=== PATIENT | male | born 1935 | race American Indian/Alaskan Native ===

== ENCOUNTER 2016-09-06 06:10 | Emergency (ER) | payer MEDICARE ==
[2016-09-06 06:48] VITALS: BP 115/71
[2016-09-06] MEDS ORDERED: BOOSTRIX IM ONE (08:57)
--- NOTE | 2016-09-06 08:58 | Emergency Department Report ---
ED General Adult HPI - General Chief complaint: Extremity Injury, Lower Stated complaint: BLEEDING TOE Time Seen by Provider: 09/06/16 08:22 Source: patient, EMS Mode of arrival: Stretcher Limitations: Physical Limitation - History of Present Illness Initial comments: Apparently [facility] was concerned as there was bleeding from the dorsum of the left toe. It is uncertain as to whether the patient had a specific injury. This is presumed as he does have a small abrasion. He is on Clopidogrel which probably accounts for the degree of bleeding which was moderate. Severity scale (0 -10): 0 - Related Data Home Medications Medication Instructions Recorded Confirmed Last Taken Acetaminophen [Acetaminophen TAB] 650 mg PO Q6HR PRN 11/10/14 08/31/15 Unknown Clopidogrel [Plavix] 75 mg PO QDAY 11/10/14 09/03/15 09/02/15 09:00 Ferrous Sulfate [Ferrous Sulfate 220 mg PO DAILY 11/10/14 09/03/15 09/02/15 09: 00 Oral Liq 220 Mg/5 Ml] Furosemide [Lasix TAB] 20 mg PO QDAY 11/10/14 09/03/15 09/02/15 09:00 LORazepam [Ativan] 1 mg PO TID PRN 11/10/14 08/31/15 Unknown Lansoprazole [Prevacid] 30 mg PO QDAY 11/10/14 09/03/15 09/02/15 09:00 Mirtazapine [Remeron] 7.5 mg PO QHS 11/10/14 07/07/15 Unknown Multivitamin Tab W-MINERAL 1 each PO QD 11/10/14 09/03/15 09/02/15 09:00 [Multiple Vitamin/Mineral (Theragran M)] Sennosides [Senna Lax] 2 tab PO BID 11/10/14 09/03/15 09/02/15 17:00 Tamsulosin [Flomax] 0.4 mg PO QDAY 11/10/14 09/03/15 09/02/15 09:00 levETIRAcetam [Keppra TAB] 500 mg PO BID 11/10/14 09/03/15 09/02/15 17:00 Lactobacillus Acidophilus/Pect 1 each PO DAILY 07/07/15 09/03/15 09/02/15 09:00 [Acidophilus-Pectin Capsule] Nitrofurantoin Macrocrysta(Nf) 50 mg PO DAILY 08/31/15 08/31/15 Unknown [Macrodantin CAP] Allergies Allergy/AdvReac Type Severity Reaction Status Date / Time No Known Allergies Allergy Verified 07/07/15 16:02 ED Review of Systems ROS: Stated complaint: BLEEDING TOE Other details as noted in HPI Comment: Unobtainable due to pts medical conditions (patient has dementia and is largely unable to focus on specific issues. He has no complaints however.) ED Past Medical Hx - Past Medical History Previous Medical History?: Yes Hx Hypertension: Yes Hx Heart Attack/AMI: No (?, daughter is poor historian.) Hx Congestive Heart Failure: Yes Hx Diabetes: Yes Hx GERD: Yes Hx Renal Disease: Yes (h/o multiple electrolyte disturbances) Hx Seizures: Yes Hx Asthma: No Hx Dementia: Yes Hx HIV: No Additional medical history: Contractures, Osteoporosis, PVD, Ventral Hernia - Surgical History Past Surgical History?: Yes Hx Open Heart Surgery: Yes (CABG) Hx Pacemaker: No Hx Internal Defibrillator: No - Social History Smoking Status: Never Smoker Substance Use Type: None - Medications Home Medications: Home Medications Medication Instructions Recorded Confirmed Last Taken Type Acetaminophen [Acetaminophen TAB] 650 mg PO Q6HR PRN 11/10/14 08/31/15 Unknown History Clopidogrel [Plavix] 75 mg PO QDAY 11/10/14 09/03/15 09/02/15 09:00 History Ferrous Sulfate [Ferrous Sulfate 220 mg PO DAILY 11/10/14 09/03/15 09/02/15 09: 00 History Oral Liq 220 Mg/5 Ml] Furosemide [Lasix TAB] 20 mg PO QDAY 11/10/14 09/03/15 09/02/15 09:00 History LORazepam [Ativan] 1 mg PO TID PRN 11/10/14 08/31/15 Unknown History Lansoprazole [Prevacid] 30 mg PO QDAY 11/10/14 09/03/15 09/02/15 09:00 History Mirtazapine [Remeron] 7.5 mg PO QHS 11/10/14 07/07/15 Unknown History Multivitamin Tab W-MINERAL 1 each PO QD 11/10/14 09/03/15 09/02/15 09:00 History [Multiple Vitamin/Mineral (Theragran M)] Sennosides [Senna Lax] 2 tab PO BID 11/10/14 09/03/15 09/02/15 17:00 History Tamsulosin [Flomax] 0.4 mg PO QDAY 11/10/14 09/03/15 09/02/15 09:00 History levETIRAcetam [Keppra TAB] 500 mg PO BID 11/10/14 09/03/15 09/02/15 17:00 History Lactobacillus Acidophilus/Pect 1 each PO DAILY 07/07/15 09/03/15 09/02/15 09:00 History [Acidophilus-Pectin Capsule] Nitrofurantoin Macrocrysta(Nf) 50 mg PO DAILY 08/31/15 08/31/15 Unknown History [Macrodantin CAP] ED Physical Exam - General Limitations: Physical Limitation General appearance: alert - Head Head exam: Present: atraumatic - Eye Eye exam: Present: normal appearance - ENT ENT exam: Present: normal exam - Neck Neck exam: Present: normal inspection - Respiratory Respiratory exam: Present: normal lung sounds bilaterally - Cardiovascular Cardiovascular Exam: Present: regular rate, normal rhythm. Absent: systolic murmur, diastolic murmur, rubs, gallop - GI/Abdominal GI/Abdominal exam: Present: soft, normal bowel sounds. Absent: distended, tenderness, guarding, rebound - Extremities Exam Extremities exam: Present: other (there is a tiny abrasion/avulsion of the dorsum of the distal phalanx of the second toe of the left foot there is no active bleeding.) - Skin Skin exam: Present: warm, dry. Absent: intact ED Course Vital Signs 09/06/16 09/06/16 09/06/16 06:30 06:35 06:46 Temperature 97 F L 97 F L Pulse Rate 82 80 89 Respiratory 18 16 18 Rate Blood Pressure 124/65 Blood Pressure 124/65 115/71 [Left] O2 Sat by Pulse 100 96 100 Oximetry - Reevaluation(s) Reevaluation #1: Tetanus vaccine and dressing. No other emergency medical condition is suspected. 09/06/16 08:56 ED Medical Decision Making - Radiology Data interpreted by me: Foot x-ray showed no acute fracture Critical care attestation.: If time is entered above; I have spent that time in minutes in the direct care of this critically ill patient, excluding procedure time. ED Disposition Clinical Impression: Abrasion of second toe of left foot Qualifiers: Encounter type: initial encounter Qualified Code(s): S90.415A - Abrasion, left lesser toe(s), initial encounter Disposition: TO HOME OR SELFCARE Is pt being admited?: No Does the pt Need Aspirin: No Condition: Stable Instructions: Abrasion (ED) Referrals: PRIMARY CARE, [Primary Care Provider] - 3-5 Days Time of Disposition: 08:57
--- NOTE | 2016-09-06 09:03 | XRay Report ---
Left foot 2 views: History: Second toe laceration. Findings: The oblique radiograph is not available for optimal evaluation. In the 2 views of the foot there is generalized osteopenia noted. No definite fracture or periosteal reaction or lytic lesion is seen. A faint soft tissue calcification is identified in the plantar aspect of the foot. Small spur is noted in the posterior superior calcaneal. Impression: Findings as detailed above. No acute fracture on 2 views available for review.
== END 2016-09-06 09:38 | disposition home or self-care (01) ==
LOC: ED 06:10
DX: S90.415A Abrasion, left lesser toe(s), initial encounter (principal); I11.0 Hypertensive heart disease with heart failure; I50.9 Heart failure, unspecified; E11.9 Type 2 diabetes mellitus without complications; K21.9 Gastro-esophageal reflux disease without esophagitis; F03.90 Unspecified dementia, unspecified severity, without behavioral disturbance, psychotic disturbance, mood disturbance, and anxiety; Z95.1 Presence of aortocoronary bypass graft; Z79.02 Long term (current) use of antithrombotics/antiplatelets; X58.XXXA Exposure to other specified factors, initial encounter; Y93.89 Activity, other specified; Y92.89 Other specified places as the place of occurrence of the external cause; Y99.8 Other external cause status
CPT/HCPCS: 82962; 90471; 90715; 99284

== ENCOUNTER 2017-04-06 10:57 | Emergency (ER) | payer MEDICAID, MEDICARE ==
--- NOTE | 2017-04-06 18:02 | Emergency Department Report ---
ED Male HPI - General Chief complaint: Tube Replacement Stated complaint: DISLODGED CATHETER Time Seen by Provider: 04/06/17 12:45 Source: EMS Mode of arrival: Stretcher Limitations: No Limitations - History of Present Illness Initial comments: Patient is a 81-year-old [place] male who is in a detention who is presenting with issue with his suprapubic catheter sometime last night the catheter was dislodged patient is being sent in for tube replacement. Patient has mild dementia is unable to give any additional history at this time. - Related Data Home Medications Medication Instructions Recorded Confirmed Last Taken Acetaminophen [Acetaminophen TAB] 650 mg PO Q6HR PRN 11/10/14 08/31/15 Unknown Clopidogrel [Plavix] 75 mg PO QDAY 11/10/14 09/03/15 09/02/15 09:00 Ferrous Sulfate [Ferrous Sulfate 220 mg PO DAILY 11/10/14 09/03/15 09/02/15 09: 00 Oral Liq 220 Mg/5 Ml] Furosemide [Lasix TAB] 20 mg PO QDAY 11/10/14 09/03/15 09/02/15 09:00 LORazepam [Ativan] 1 mg PO TID PRN 11/10/14 08/31/15 Unknown Lansoprazole [Prevacid] 30 mg PO QDAY 11/10/14 09/03/15 09/02/15 09:00 Mirtazapine [Remeron] 7.5 mg PO QHS 11/10/14 07/07/15 Unknown Multivitamin Tab W-MINERAL 1 each PO QD 11/10/14 09/03/15 09/02/15 09:00 [Multiple Vitamin/Mineral (Theragran M)] Sennosides [Senna Lax] 2 tab PO BID 11/10/14 09/03/15 09/02/15 17:00 Tamsulosin [Flomax] 0.4 mg PO QDAY 11/10/14 09/03/15 09/02/15 09:00 levETIRAcetam [Keppra TAB] 500 mg PO BID 11/10/14 09/03/15 09/02/15 17:00 Lactobacillus Acidophilus/Pect 1 each PO DAILY 07/07/15 09/03/15 09/02/15 09:00 [Acidophilus-Pectin Capsule] Nitrofurantoin Macrocrysta(Nf) 50 mg PO DAILY 08/31/15 08/31/15 Unknown [Macrodantin CAP] Allergies Allergy/AdvReac Type Severity Reaction Status Date / Time No Known Allergies Allergy Verified 07/07/15 16:02 ED Review of Systems ROS: Stated complaint: DISLODGED CATHETER Other details as noted in HPI Comment: Unobtainable due to pts medical conditions ED Past Medical Hx - Past Medical History Hx Hypertension: Yes Hx Heart Attack/AMI: No (?, daughter is poor historian.) Hx Congestive Heart Failure: Yes Hx Diabetes: Yes Hx GERD: Yes Hx Renal Disease: Yes (h/o multiple electrolyte disturbances) Hx Seizures: Yes Hx Asthma: No Hx Dementia: Yes Hx HIV: No Additional medical history: Contractures, Osteoporosis, PVD, Ventral Hernia - Surgical History Hx Open Heart Surgery: Yes (CABG) Hx Pacemaker: No Hx Internal Defibrillator: No - Social History Smoking Status: Never Smoker Substance Use Type: None - Medications Home Medications: Home Medications Medication Instructions Recorded Confirmed Last Taken Type Acetaminophen [Acetaminophen TAB] 650 mg PO Q6HR PRN 11/10/14 08/31/15 Unknown History Clopidogrel [Plavix] 75 mg PO QDAY 11/10/14 09/03/15 09/02/15 09:00 History Ferrous Sulfate [Ferrous Sulfate 220 mg PO DAILY 11/10/14 09/03/15 09/02/15 09: 00 History Oral Liq 220 Mg/5 Ml] Furosemide [Lasix TAB] 20 mg PO QDAY 11/10/14 09/03/15 09/02/15 09:00 History LORazepam [Ativan] 1 mg PO TID PRN 11/10/14 08/31/15 Unknown History Lansoprazole [Prevacid] 30 mg PO QDAY 11/10/14 09/03/15 09/02/15 09:00 History Mirtazapine [Remeron] 7.5 mg PO QHS 11/10/14 07/07/15 Unknown History Multivitamin Tab W-MINERAL 1 each PO QD 11/10/14 09/03/15 09/02/15 09:00 History [Multiple Vitamin/Mineral (Theragran M)] Sennosides [Senna Lax] 2 tab PO BID 11/10/14 09/03/15 09/02/15 17:00 History Tamsulosin [Flomax] 0.4 mg PO QDAY 11/10/14 09/03/15 09/02/15 09:00 History levETIRAcetam [Keppra TAB] 500 mg PO BID 11/10/14 09/03/15 09/02/15 17:00 History Lactobacillus Acidophilus/Pect 1 each PO DAILY 07/07/15 09/03/15 09/02/15 09:00 History [Acidophilus-Pectin Capsule] Nitrofurantoin Macrocrysta(Nf) 50 mg PO DAILY 08/31/15 08/31/15 Unknown History [Macrodantin CAP] ED Physical Exam - General Limitations: No Limitations General appearance: alert, in no apparent distress - Head Head exam: Present: atraumatic - Neck Neck exam: Present: normal inspection - Respiratory Respiratory exam: Present: normal lung sounds bilaterally. Absent: respiratory distress, wheezes, rales, rhonchi - Cardiovascular Cardiovascular Exam: Present: regular rate, normal rhythm - GI/Abdominal GI/Abdominal exam: Present: soft, other (stoma present with no suprapubic catheter in place). Absent: distended, tenderness ED Course Vital Signs 04/06/17 12:18 Temperature 97.7 F Pulse Rate 64 Respiratory 18 Rate Blood Pressure 160/83 [Left] O2 Sat by Pulse 99 Oximetry ED Medical Decision Making - Medical Decision Making Nursing staff was unable to pass a Madsen catheter into the patient's stoma therefore I ordered the urology cart to be brought to the emergency department. He was able to use dilator kit to access the stoma again patient tolerated this procedure well and using sterile conditions a 16 Tristanian catheter was able to be placed. There was good urine flow from the catheter. Patient will be sent back to [facility] at this time. Critical care attestation.: If time is entered above; I have spent that time in minutes in the direct care of this critically ill patient, excluding procedure time. ED Disposition Clinical Impression: Suprapubic catheter dysfunction Qualifiers: Encounter type: initial encounter Qualified Code(s): T83.010A - Breakdown ( mechanical) of cystostomy catheter, initial encounter Disposition: - TO HOME OR SELFCARE Is pt being admited?: No Does the pt Need Aspirin: No Condition: Stable Referrals: BRODERICK STEPHENSON MD [Primary Care Provider] - 3-5 Days
[2017-04-06 21:53] VITALS: BP 160/90
[2017-04-07] MEDS ORDERED: NACL 0.9% ONE (14:52)
== END 2017-04-07 03:45 | disposition home or self-care (01) ==
LOC: ED 10:57
DX: T83.010A Breakdown (mechanical) of cystostomy catheter, initial encounter (principal); E11.9 Type 2 diabetes mellitus without complications; K21.9 Gastro-esophageal reflux disease without esophagitis; I10 Essential (primary) hypertension; Z95.1 Presence of aortocoronary bypass graft; R56.9 Unspecified convulsions
CPT/HCPCS: 51702; 99283; A4217; C1726

== ENCOUNTER 2017-08-26 11:29 | Inpatient (IN) | payer MEDICARE ==
[2017-08-26 12:44] LABS: Basophils # (Auto) 0.1 K/mm3 (0.0-0.1); Basophils % (Auto) 0.7 % (0.0-1.8); Eosinophils # (Auto) 0.2 K/mm3 (0.0-0.4); Eosinophils % (Auto) 1.4 % (0.0-4.3); Hematocrit 38.4 % (35.5-45.6); Lymphocytes # (Auto) 1.1 K/mm3 (1.2-5.4); Mean Corpuscular HGB Conc 31 % (32-34); Mean Corpuscular Hemoglobin 30 pg (28-32); Mean Corpuscular Volume 94 fl (84-94); Monocytes # (Auto) 0.9 K/mm3 (0.0-0.8); Monocytes % (Auto) 7.1 % (0.0-7.3); Platelet Count 513 K/mm3 (140-440); Red Blood Count 4.07 M/mm3 (3.65-5.03)
[2017-08-26 12:56] LABS: Calcium 9.4 mg/dL (8.4-10.2)
--- NOTE | 2017-08-26 13:09 | XRay Report ---
Single view chest: Compared to 08/24. History: Hypertension. Findings Cardiomegaly. Trachea is midline. No consolidation, pneumothorax or pleural effusion. Impression: No acute cardiopulmonary findings
[2017-08-26 13:22] LABS: INR 1.18 (0.87-1.13)
[2017-08-26 13:23] LABS: Partial Thromboplastin Time 32.8 Sec. (24.2-36.6)
[2017-08-26 13:27] LABS: Bilirubin,Urine NEG (Negative); Blood,Urine LG (Negative); Color,Urine Yellow (Yellow); Mucus,Urine FEW /HPF; Urobilinogen,Urine < 2.0 mg/dL (<2.0)
[2017-08-26 13:28] LABS: WBC,Urine > 182.0 /HPF (0.0-6.0)
[2017-08-26 13:55] LABS: Creatine Kinase MB 2.3 ng/mL (0.0-4.0)
[2017-08-26 13:56] LABS: Albumin 2.9 g/dL (3.9-5); Bilirubin,Direct 0.3 mg/dL (0-0.2)
[2017-08-26 13:59] LABS: Alanine Aminotransferase < 5 units/L (7-56)
[2017-08-26] MEDS ORDERED: NACL 0.9% 1000 ML 1,000 ML IV ONE (14:23)
[2017-08-26] MEDS ORDERED: NACL 0.9% 1000 ML 250 ML IV ONE (14:24)
[2017-08-26] MEDS ORDERED: ZOSYN/NS 3.375GM/50ML 3.375 GM/50 ML BAG IV ONE (14:27)
[2017-08-26] MEDS ORDERED: VANCOMYCIN 1,750 MG in NACL 0.9% 500 ML 500 ML IV ONE (14:45)
[2017-08-26] MEDS ORDERED: VANCOMYCIN PHARMACY TO DOSE IV SCH (15:00)
--- NOTE | 2017-08-26 15:55 | Emergency Department Report ---
ED General Adult HPI - General Chief complaint: Recheck/Abnormal Lab/Rx Stated complaint: ABNORMAL LABS Time Seen by Provider: 08/26/17 12:31 Source: EMS Mode of arrival: Stretcher Limitations: Altered Mental Status, Physical Limitation - History of Present Illness Initial comments: 82 [facility] old [facility] abnormalities. According to the transfer sheet his vital signs were stable and she was afebrile at [facility]. He apparently had laboratory and EKG worsening renal function. The patient was recently admitted to this facility. This is a gentleman with almost innumerable comorbidities. He is diabetic. 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 He has had previous strokes associated with left hemiparesthesias and contracture. He has a suprapubic catheter. He is had numerous UTIs. His last BUN and creatinine on August 16 were 47 and 21 respectively. Apparently he is a full CODE STATUS. He is poorly verbal. However, he is able to communicate to me that he really does not want aggressive care (he did not really seem to be very interested and even having a peripheral IV started). -: Gradual Severity scale (0 -10): 0 - Related Data Home Medications Medication Instructions Recorded Confirmed Last Taken Acetaminophen [Acetaminophen TAB] 650 mg PO Q6HR PRN 11/10/14 08/26/17 Unknown Clopidogrel [Plavix] 75 mg PO DAILY 11/10/14 08/26/17 09/02/15 09:00 Ferrous Sulfate [Ferrous Sulfate 5 ml PO DAILY 11/10/14 08/26/17 09/02/15 09:00 Oral Liq 220 Mg/5 Ml] Furosemide [Lasix TAB] 20 mg PO QDAY 11/10/14 08/26/17 09/02/15 09:00 LORazepam [Ativan] 1 mg PO TID PRN 11/10/14 08/26/17 Unknown Multivitamin Tab W-MINERAL 1 each PO DAILY 11/10/14 08/26/17 09/02/15 09:00 [Multiple Vitamin/Mineral (Theragran M)] Tamsulosin [Flomax] 0.4 mg PO DAILY 11/10/14 08/26/17 09/02/15 09:00 levETIRAcetam [Keppra TAB] 500 mg PO BID 11/10/14 08/26/17 09/02/15 17:00 Lactobacillus Acidophilus/Pect 1 each PO DAILY 07/07/15 08/26/17 09/02/15 09:00 [Acidophilus-Pectin Capsule] Nitrofurantoin Macrocrysta(Nf) 50 mg PO DAILY 08/31/15 08/26/17 Unknown [Macrodantin CAP] Lansoprazole [Prevacid] 30 mg PO DAILY 08/26/17 08/26/17 Unknown Mirtazapine 7.5 mg PO HS 08/26/17 08/26/17 Unknown Sennosides [Senna] 17.2 mg PO BID 08/26/17 08/26/17 Unknown Previous Rx's Medication Instructions Recorded Last Taken Type Metoprolol [Lopressor TAB] 50 mg PO Q8H #30 tablet 08/17/17 Unknown Rx Allergies Allergy/AdvReac Type Severity Reaction Status Date / Time No Known Allergies Allergy Verified 07/07/15 16:02 ED Review of Systems ROS: Stated complaint: ABNORMAL LABS Other details as noted in HPI Comment: Unobtainable due to pts medical conditions ED Past Medical Hx - Past Medical History Hx Hypertension: Yes Hx Heart Attack/AMI: Yes Hx Congestive Heart Failure: Yes Hx Diabetes: Yes Hx GERD: Yes Hx Renal Disease: Yes (h/o multiple electrolyte disturbances) Hx Seizures: Yes Hx Asthma: No Hx Dementia: Yes Hx HIV: No Additional medical history: Contractures, Osteoporosis, PVD, Ventral Hernia - Surgical History Hx Open Heart Surgery: Yes (CABG) Hx Pacemaker: No Hx Internal Defibrillator: No - Social History Smoking Status: Unknown if ever smoked Substance Use Type: None Other Social History: alf resident, recent hospitalization here in August. - Medications Home Medications: Home Medications Medication Instructions Recorded Confirmed Last Taken Type Acetaminophen [Acetaminophen TAB] 650 mg PO Q6HR PRN 11/10/14 08/26/17 Unknown History Clopidogrel [Plavix] 75 mg PO DAILY 11/10/14 08/26/17 09/02/15 09:00 History Ferrous Sulfate [Ferrous Sulfate 5 ml PO DAILY 11/10/14 08/26/17 09/02/15 09:00 History Oral Liq 220 Mg/5 Ml] Furosemide [Lasix TAB] 20 mg PO QDAY 11/10/14 08/26/17 09/02/15 09:00 History LORazepam [Ativan] 1 mg PO TID PRN 11/10/14 08/26/17 Unknown History Multivitamin Tab W-MINERAL 1 each PO DAILY 11/10/14 08/26/17 09/02/15 09:00 History [Multiple Vitamin/Mineral (Theragran M)] Tamsulosin [Flomax] 0.4 mg PO DAILY 11/10/14 08/26/17 09/02/15 09:00 History levETIRAcetam [Keppra TAB] 500 mg PO BID 11/10/14 08/26/17 09/02/15 17:00 History Lactobacillus Acidophilus/Pect 1 each PO DAILY 07/07/15 08/26/17 09/02/15 09:00 History [Acidophilus-Pectin Capsule] Nitrofurantoin Macrocrysta(Nf) 50 mg PO DAILY 08/31/15 08/26/17 Unknown History [Macrodantin CAP] Metoprolol [Lopressor TAB] 50 mg PO Q8H #30 tablet 08/17/17 08/26/17 Unknown Rx Lansoprazole [Prevacid] 30 mg PO DAILY 08/26/17 08/26/17 Unknown History Mirtazapine 7.5 mg PO HS 08/26/17 08/26/17 Unknown History Sennosides [Senna] 17.2 mg PO BID 08/26/17 08/26/17 Unknown History ED Physical Exam - General Limitations: Altered Mental Status, Physical Limitation General appearance: other (quite volume depleted) - Head Head exam: Present: atraumatic - Eye Eye exam: Absent: scleral icterus - ENT ENT exam: Present: mucous membranes dry - Neck Neck exam: Present: normal inspection - Respiratory Respiratory exam: Present: normal lung sounds bilaterally. Absent: respiratory distress, accessory muscle use - Cardiovascular Cardiovascular Exam: Present: regular rate, normal rhythm. Absent: systolic murmur, diastolic murmur, rubs, gallop - GI/Abdominal GI/Abdominal exam: Present: soft, normal bowel sounds, other (the suprapubic site has white purulent material. This was sent for culture. The catheter is draining urine which looks turbid.). Absent: distended, tenderness, guarding, rebound, rigid - Extremities Exam Extremities exam: Present: other (contracture of the left upper extremity and generalized rigidity) - Neurological Exam Neurological exam: Present: other (no acute focal deficit) ED Course Vital Signs 08/26/17 08/26/17 11:42 12:36 Temperature 98.7 F Pulse Rate 80 69 Respiratory 20 15 Rate Blood Pressure 113/91 Blood Pressure 125/59 [Right] O2 Sat by Pulse 97 97 Oximetry - Reevaluation(s) Reevaluation #1: Nurses were unable to start an IV. Patient was indeed poorly cooperative. I was able to insert a 24-gauge catheter into the patient's right hand. It is flowing well and was secured. The patient did not seem to want aggressive care at all. I discussed this with Dr. Garcia. I have ordered a midline consult. However, the patient was really quite resistant and having even a peripheral IV. I believe his CODE STATUS should be revisited with his family. Dr. Garcia. His urine was purulent. He had acute on chronic renal failure. He was hyponatremic and slightly hyperkalemic. Dr. Garcia and I discussed his fluid management. I will start him on normal saline. He will need hypotonic fluid after that. I will defer further fluid management to Dr. Garcia and nephrology consultation. He is extremely volume depleted. I believe his sodium should be gently lowered. In any case there are various methods and correcting this patient's azotemia and hypernatremia. Further care per above. He is admitted in stable condition. 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 I have ordered a CT of the abdomen and head which are pending. 08/26/17 16:00 ED Medical Decision Making - Lab Data Result diagrams: 08/26/17 12:18 08/26/17 12:18 Laboratory Results - last 24 hr 08/26/17 08/26/17 08/26/17 12:18 12:18 12:18 WBC 13.4 H RBC 4.07 Hgb 12.0 Hct 38.4 MCV 94 MCH 30 MCHC 31 L RDW 16.0 H Plt Count 513 H Lymph % (Auto) 8.0 L [place] % (Auto) 7.1 Eos % (Auto) 1.4 Baso % (Auto) 0.7 Lymph # 1.1 L [place] # 0.9 H Eos # 0.2 Baso # 0.1 Seg Neutrophils % 82.8 H Seg Neutrophils # 11.1 H PT INR APTT Sodium 157 H Potassium 5.2 H Chloride 118.9 H Carbon Dioxide 24 Anion Gap 19 BUN 110 H Creatinine 6.1 H Estimated GFR 11 BUN/Creatinine Ratio 18 Glucose 177 H Calcium 9.4 Phosphorus Magnesium 2.80 H Total Bilirubin 0.70 Direct Bilirubin 0.3 H Indirect Bilirubin 0.4 AST 11 ALT < 5 L Alkaline Phosphatase 116 Total Creatine Kinase 243 H CK-MB (CK-2) 2.3 CK-MB (CK-2) Rel Index 0.9 NT-Pro-B Natriuret Pep 1539 H Total Protein 8.9 H Albumin 2.9 L Albumin/Globulin Ratio 0.5 Urine Color Urine Turbidity Urine pH Ur Specific [place] Urine Protein Urine Glucose (UA) Urine Ketones Urine Blood Urine Nitrite Urine Bilirubin Urine Urobilinogen Ur Leukocyte Esterase Urine WBC (Auto) Urine RBC (Auto) Urine WBC Clumps Urine Mucus 08/26/17 08/26/17 08/26/17 12:18 12:54 13:06 WBC RBC Hgb Hct MCV MCH MCHC RDW Plt Count Lymph % (Auto) [place] % (Auto) Eos % (Auto) Baso % (Auto) Lymph # [place] # Eos # Baso # Seg Neutrophils % Seg Neutrophils # PT 15.7 H INR 1.18 H APTT 32.8 Sodium Potassium Chloride Carbon Dioxide Anion Gap BUN Creatinine Estimated GFR BUN/Creatinine Ratio Glucose Calcium Phosphorus 4.80 H Magnesium Total Bilirubin Direct Bilirubin Indirect Bilirubin AST ALT Alkaline Phosphatase Total Creatine Kinase CK-MB (CK-2) CK-MB (CK-2) Rel Index NT-Pro-B Natriuret Pep Total Protein Albumin Albumin/Globulin Ratio Urine Color Yellow Urine Turbidity Clear Urine pH 7.0 Ur Specific [place] 1.013 Urine Protein 100 mg/dl Urine Glucose (UA) Neg Urine Ketones Neg Urine Blood Lg Urine Nitrite Neg Urine Bilirubin Neg Urine Urobilinogen < 2.0 Ur Leukocyte Esterase Lg Urine WBC (Auto) > 182.0 H Urine RBC (Auto) 32.0 Urine WBC Clumps 3+ Urine Mucus Few Critical care attestation.: If time is entered above; I have spent that time in minutes in the direct care of this critically ill patient, excluding procedure time. ED Disposition Clinical Impression: Hypernatremia, Hyperkalemia, Hyperchloremia Acute on chronic renal failure Qualifiers: Acute renal failure type: unspecified Chronic kidney disease stage: stage 4 ( severe) Qualified Code(s): N17.9 - Acute kidney failure, unspecified; N18.4 - Chronic kidney disease, stage 4 (severe) UTI (urinary tract infection) Qualifiers: Urinary tract infection type: site unspecified Hematuria presence: without hematuria Qualified Code(s): N39.0 - Urinary tract infection, site not specified Leukocytosis Qualifiers: Leukocytosis type: unspecified Qualified Code(s): D72.829 - Elevated white blood cell count, unspecified Disposition: OP ADMIT IP TO THIS HOSP Is pt being admited?: Yes Does the pt Need Aspirin: Yes Condition: Stable Referrals: PRIMARY CARE, [Primary Care Provider] - 3-5 Days Time of Disposition: 16:05
--- NOTE | 2017-08-26 17:03 | Cat Scan Report ---
FINAL REPORT EXAM: CT ABDOMEN PELVIS WO CON HISTORY: renal failure UTI COMPARISON: None. TECHNIQUE: Multiple contiguous axial images were obtained from the lung bases to the pubic symphysis without administration of IV contrast. Reformatted sagittal and coronal images were available for review. FINDINGS: Lung bases: Mild left-sided pleural thickening. Visualized heart and mediastinum: Mild cardiomegaly. Scattered coronary artery calcifications. Pacemaker leads are seen. Liver: Normal noncontrast appearance. Spleen: Normal noncontrast appearance. Pancreas: Normal noncontrast appearance. Gallbladder and Biliary Tree: The gallbladder is distended. There are multiple small calcified gallstones. There is no biliary ductal dilatation. Adrenal glands: Normal. Kidneys: There is severe bilateral hydronephrosis and bilateral hydroureter. There is marked cortical thinning of the left kidney. There are several large nonobstructive calculi of the right kidney measuring up to 1.4 centimeters. There are some calcifications within the dependent portion of the distal right ureter (series 2, image 130). Bladder: There is a suprapubic catheter. There is marked bladder wall thickening. There is a 9 millimeter calcification in the dependent portion of the bladder. Pelvic organs: There is enlargement and irregularity of the prostate gland with mass effect at the bladder base. Bowel: No focal wall thickening. No evidence of obstruction. Large amount of stool within the colon. Diverticulosis of the descending and sigmoid colon without evidence of diverticulitis. Normal caliber of the appendix without surrounding inflammatory change. Peritoneum: No significant mesenteric adenopathy. No free air or free fluid. Vasculature: Abdominal aorta is normal in caliber without evidence of aneurysm. Scattered atherosclerotic calcifications. Normal noncontrast appearance of the portal venous system and the inferior vena cava. Bones and soft tissues: No suspicious osseous lesions. No acute fracture or dislocation. Fat containing periumbilical hernia. IMPRESSION: 1. Bladder wall thickening concerning for cystitis versus chronic bladder outlet obstruction. Recommend clinical correlation. 2. Severe bilateral hydronephrosis and hydroureter. 3. Marked cortical thinning of the left kidney. 4. Nonobstructive renal calculi of the right kidney and a few calcifications in the distal right ureter. 5. Enlargement of the prostate gland with mass effect at the bladder base. 6. Cholelithiasis without evidence for cholecystitis.
--- NOTE | 2017-08-26 17:27 | Cat Scan Report ---
FINAL REPORT EXAM: CT HEAD/BRAIN WO CON HISTORY: chronic subdurals and hypernatremia/mental status TECHNIQUE: Standard unenhanced CT of the head at 5.0 millimeter axial increments. PRIORS: None. FINDINGS: There is a large area of remote infarct and encephalomalacia involving the right middle cerebral artery territory. Overlying the area of encephalomalacia, there is a right-sided low-density subdural collection measuring 8 mm (axial image 22, series 5) this is consistent with a subdural hygroma. No significant mass-effect is present. There ballooning of the right lateral ventricle related to the adjacent encephalomalacia. There is mild cerebral atrophy. There is mild cerebellar atrophy with a small focal remote infarct in the left cerebellar hemisphere. There is no evidence for mass lesion, mass effect, midline shift, acute intracranial hemorrhage, or acute ischemia/ infarction. No evidence for acute skull fracture is seen. No abnormality in the overlying scalp soft tissues is seen. Visualized paranasal sinuses demonstrates opacification in the ethmoid air cells, right worse than left, and in the right frontal region. IMPRESSION: 1. No acute intracranial process noted. 2. 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 3. Cerebellar and cerebral atrophy.
[2017-08-26] MEDS: ZOSYN/NS 2.25 GM/50ML 2.25 GM/50 ML BAG IV SCH ×2 (17:33→23:05)
--- NOTE | 2017-08-26 19:22 | Event Note ---
Date: 08/26/17 Consult request for DARYL. Labs reviewed. CT findings notable for severe bilateral hydronephrosis/hydroureter. Per CT, patient w/ suprapubic catheter. * Recommend urology and/or IR consultation as patient may require percutaneous nephrostomy tube - discussed with Dr. Garcia. * Continue IVF * Medical management of K
[2017-08-26] MEDS ORDERED: KIONEX PO ONE (20:00)
--- NOTE | 2017-08-27 01:45 | Event Note ---
Date: 08/26/17 See dictated H/p in [facility] Bilateral [id number] DARYL
[2017-08-27] MEDS ORDERED: TYLENOL PO PRN ×2 (01:51→01:54)
[2017-08-27] MEDS ORDERED: ATIVAN PO PRN (01:51)
[2017-08-27] MEDS ORDERED: ZOFRAN IV PRN (01:54)
[2017-08-27] MEDS ORDERED: MORPHINE IV PRN (01:54)
[2017-08-27] MEDS ORDERED: SODIUM CHLORIDE FLUSH SYRINGE 10 ML IV PRN (01:54)
[2017-08-27] MEDS: KEPPRA PO SCH ×3 (02:30→23:40)
--- NOTE | 2017-08-27 02:51 | History and Physical Report ---
CHIEF COMPLAINT: Abnormal labs and acute kidney failure as per the [facility]. HISTORY OF PRESENT ILLNESS: An 82-year-old male with a suprapubic catheter, seizure disorder, BPH, coronary artery disease, and gastroesophageal reflux disease, sent in from the [facility] for worsening kidney function. The patient is also diabetic and is status post CABG. 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 Numerous UTIs. His last BUN and creatinine were 47 and 2.1 on 08/16/2017. The patient is fully verbal, unable to communicate. No fever, no chills. PAST MEDICAL HISTORY: As mentioned, coronary artery disease, anemia, CHF, BPH, seizure disorder, urinary tract infections, recurrent constipation. PAST SURGICAL HISTORY: Open heart surgery, CABG. SOCIAL HISTORY: [facility] resident. Not really smoke. The patient unable to answer. FAMILY HISTORY: Hypertension, from the [facility] sheet. REVIEW OF SYSTEMS: Significant for feeling generalized weakness. Otherwise, review of systems negative. Also, left-sided weakness. A 14-point review of systems done. PHYSICAL EXAMINATION: GENERAL: Elderly male, alert but not oriented to time and place. VITAL SIGNS: Blood pressure is 116/59, temperature is 98, pulse is 70, respirations are 15. HEENT: Unremarkable. Pupils equal and reactive. NECK: Supple, no lymphadenopathy, no thyromegaly. LUNGS: Clear to auscultation and percussion. Good air entry. CARDIOVASCULAR: S1, S2 heard. No gallop, no murmur, no rub. Apical impulse in the left fifth intercostal space and midclavicular line. ABDOMEN: Soft and benign. No hepatosplenomegaly. No guarding, no rigidity. Hernial orifices are normal. Suprapubic catheter present. Draining urine. EXTREMITIES: Left-sided hemiplegia present. Left upper extremity contractures present, especially at the wrist and the fingers. CENTRAL NERVOUS SYSTEM: Alert, but not oriented. Generalized weakness present. SKIN: Normal. LABORATORY DATA: Significant for white count of 13,400, H and H of 12.0 and 38.4, platelet count of 513,000. Protime is 15.7, INR is 1.18. Sodium is 157, potassium is 5.2, chloride is 119, BUN and creatinine is 110 and 6.1, phosphorus is 4.8, magnesium is 2.8. Total CK is 243 and BNP is 1539. Urine wbc's more than 182. CT of the abdomen shows bilateral hydronephrosis, bilateral hydroureter. Marked cortical thickening of the left kidney. Several large nonobstructive calculi of the right kidney measuring up to 1.4 cm present. Marked bladder wall thickening, 9 mm calcifications of the dependent portion of the bladder. Cholelithiasis without evidence for cholecystitis. ASSESSMENT AND PLAN: 1. Acute kidney injury. The patient had bilateral hydronephrosis secondary to ureteric obstruction. The patient needs nephrostomy tubes bilaterally.IR and urology consulted.IV Fluids as necessary Poor IV access. 2. Bilateral hydronephrosis--May need Bilateral nephrostomy tubes.Will defer to IR/Urology. 3. Hypernatremia. D5W for the time being, though no IV access. To get IV access SAVANNAH. 4. Hyperkalemia. Kayexalate to be given. 5. Congestive heart failure. We will hold the Lasix for the time being. 6. Seizure disorder. Continue Keppra 500 b.i.d. 7. Hypertension. Continue metoprolol. 8. Urinary tract infections.On Zosyn and vancomycin 9. Benign prostatic hypertrophy. Continue tamsulosin 0.4 daily. 10. Deep venous thrombosis prophylaxis. Heparin 5000 q. 12. JOB# [id number] VSM/NTS MTDD
[2017-08-27] MEDS: SENOKOT PO SCH ×3 (04:28→23:41)
[2017-08-27] MEDS: LOPRESSOR PO SCH ×3 (04:28→23:42)
[2017-08-27] MEDS: ZOSYN/NS 2.25 GM/50ML 2.25 GM/50 ML BAG IV SCH ×2 (06:10→16:36)
[2017-08-27 09:05] LABS: Calcium 9.1 mg/dL (8.4-10.2)
[2017-08-27] MEDS ORDERED: NON-FORMULARY (Lansoprazole 30 MG) PO SCH (10:00)
[2017-08-27] MEDS ORDERED: NITROFURANTOIN MACROCRYSTALS 50 MG PO SCH (10:00)
[2017-08-27] MEDS ORDERED: PEPCID PO SCH (10:00)
[2017-08-27] MEDS ORDERED: KIONEX PO NR (10:26)
--- NOTE | 2017-08-27 10:28 | Consultation ---
History of Present Illness - Reason for Consult Consult date: 08/27/17 acute renal failure - History of Present Illness Obtained from medical records as patient is lethargic 82 year old male sent from the longterm for evaluation of laboratory abnormalities. According to the transfer sheet his vital signs were stable and she was afebrile at [facility]. He apparently had laboratory and EKG worsening renal function. The patient was recently admitted to this facility. This is a gentleman with almost innumerable comorbidities. He is diabetic. 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 He has had previous strokes associated with left hemiparesthesias and contracture. He has a suprapubic catheter. He is had numerous UTIs. His last BUN and creatinine on August 16 were 47 and 21 respectively. Apparently he is a full CODE STATUS. He is poorly verbal. However, he is able to communicate to me that he really does not want aggressive care (he did not really seem to be very interested and even having a peripheral IV started). Past History Past Medical History: CAD, renal failure, stroke (left hemiparesis) Past Surgical History: CABG Social history: other (resides in SNF) Medications and Allergies Allergies Allergy/AdvReac Type Severity Reaction Status Date / Time No Known Allergies Allergy Verified 07/07/15 16:02 Home Medications Medication Instructions Recorded Confirmed Last Taken Type Acetaminophen [Acetaminophen TAB] 650 mg PO Q6HR PRN 11/10/14 08/26/17 Unknown History Clopidogrel [Plavix] 75 mg PO DAILY 11/10/14 08/26/17 09/02/15 09:00 History Ferrous Sulfate [Ferrous Sulfate 5 ml PO DAILY 11/10/14 08/26/17 09/02/15 09:00 History Oral Liq 220 Mg/5 Ml] Furosemide [Lasix TAB] 20 mg PO QDAY 11/10/14 08/26/17 09/02/15 09:00 History LORazepam [Ativan] 1 mg PO TID PRN 11/10/14 08/26/17 Unknown History Multivitamin Tab W-MINERAL 1 each PO DAILY 11/10/14 08/26/17 09/02/15 09:00 History [Multiple Vitamin/Mineral (Theragran M)] Tamsulosin [Flomax] 0.4 mg PO DAILY 11/10/14 08/26/17 09/02/15 09:00 History levETIRAcetam [Keppra TAB] 500 mg PO BID 11/10/14 08/26/17 09/02/15 17:00 History Lactobacillus Acidophilus/Pect 1 each PO DAILY 07/07/15 08/26/17 09/02/15 09:00 History [Acidophilus-Pectin Capsule] Nitrofurantoin Macrocrysta(Nf) 50 mg PO DAILY 08/31/15 08/26/17 Unknown History [Macrodantin CAP] Metoprolol [Lopressor TAB] 50 mg PO Q8H #30 tablet 08/17/17 08/26/17 Unknown Rx Lansoprazole [Prevacid] 30 mg PO DAILY 08/26/17 08/26/17 Unknown History Mirtazapine 7.5 mg PO HS 08/26/17 08/26/17 Unknown History Sennosides [Senna] 17.2 mg PO BID 08/26/17 08/26/17 Unknown History Active Meds: Active Medications Acetaminophen (Tylenol) 650 mg PO Q4H PRN PRN Reason: Pain MILD(1-3)/Fever >100.5/CUADRA Aspirin (Baby Aspirin) 81 mg PO QDAY ONE Stop: 08/27/17 16:09 Famotidine (Pepcid) 20 mg PO QAM [facility] Piperacillin Sod/Tazobactam Sod (Zosyn/Ns 2.25 Gm/50ml) 2.25 gm in 50 mls @ 100 mls/hr IV Q8H [facility] Last Admin: 08/27/17 06:10 Dose: Not Given Dextrose/Sodium Chloride (D5ns 0.2%) 1,000 mls @ 125 mls/hr IV DIRECT YUNIEL Lactobacillus Acidophilus (Lactinex) 1 each PO DAILY [facility] Levetiracetam (Keppra) 500 mg PO BID [facility] Last Admin: 08/27/17 02:30 Dose: Not Given Lorazepam (Ativan) 1 mg PO TID PRN PRN Reason: Anxiety Metoprolol Tartrate (Lopressor) 50 mg PO Q8HR [facility] Last Admin: 08/27/17 04:28 Dose: Not Given Mirtazapine (Remeron) 7.5 mg PO HS [facility] Miscellaneous Medication (Nitrofurantoin Macrocrysta(Nf)) 50 mg PO DAILY [facility] Morphine Sulfate (Morphine) 2 mg IV Q4H PRN PRN Reason: Pain, Moderate (4-6) Multivitamins/Minerals (Theragran-M Tab) 1 each PO DAILY [facility] Ondansetron HCl (Zofran) 4 mg IV Q8H PRN PRN Reason: Nausea And Vomiting Senna (Senokot) 17.2 mg PO BID [facility] Last Admin: 08/27/17 04:28 Dose: Not Given Sodium Chloride (Sodium Chloride Flush Syringe 10 Ml) 10 ml IV BID [facility] Sodium Chloride (Sodium Chloride Flush Syringe 10 Ml) 10 ml IV PRN PRN PRN Reason: LINE FLUSH Sodium Polystyrene Sulfonate (Kionex) 30 gm PO ONCE ONE Stop: 08/27/17 10:27 Tamsulosin HCl (Flomax) 0.4 mg PO DAILY [facility] Vancomycin HCl (Vancomycin Pharmacy To Dose) 1 each IV PKCONSULT YUNIEL; Protocol Review of Systems ROS unobtainable: due to mental status Exam - Vital Signs Vital signs: Vital Signs Pulse Resp BP Pulse Ox 80 20 113/91 97 08/26/17 11:42 08/26/17 11:42 08/26/17 11:42 08/26/17 11:42 - General Appearance General appearance: well-developed EENT: ATNC Respiratory: Decreased Breath Sounds Heart: regular, S1S2 Gastrointestinal: Absent: tenderness, distended Integumentary: no rash, warm and dry Neurologic: other (lethargic) Musculoskeletal: Present: other (no edema) Results - Lab Results 08/26/17 12:18 08/27/17 08:19 Most recent lab results Calcium 9.1 mg/dL (8.4-10.2) 08/27/17 08:19 Phosphorus 4.80 mg/dL (2.5-4.5) H 08/26/17 12:18 Magnesium 2.80 mg/dL (1.7-2.3) H 08/26/17 12:18 Assessment and Plan Impression: * Acute kidney injury due to multifactorial etiologies - prerenal azotemia due to dehydration vs obstructive uropathy * Bilateral hydronephrosis in setting of suprapubic catheter * Hypernatremia * Hyperkalemia * Type II DM * Hx of CVA Plan: * No acute indication for dialysis - renal prognosis is guarded * IR consulted - planning percutaneous nephrostomy tube * IVF not infusing at time of visit - will start 1/4NS 100ml/hour * Kayexelate 30g ordered * Empiric abx per primary team * Avoid potential nephrotoxins * Dose medications for renal function
[2017-08-27] MEDS ORDERED: D5NS 0.2% 1,000 ML IV SCH (11:00)
[2017-08-27] MEDS: PEPCID PO SCH (11:01)
[2017-08-27] MEDS: THERAGRAN-M Tab PO SCH (11:02)
[2017-08-27] MEDS: FLOMAX PO SCH (11:02)
[2017-08-27] MEDS: SODIUM CHLORIDE FLUSH SYRINGE 10 ML IV SCH ×2 (11:16→23:43)
--- NOTE | 2017-08-27 11:24 | Event Note ---
Date: 08/27/[address] Laird and with Dr. Castro and the patient's son, Flaco SAUCEDA. Patient's son wants everything done for patient. Will plan for hydronephrosis.
[2017-08-27] MEDS ORDERED: APRESOLINE IV PRN (11:26)
--- NOTE | 2017-08-27 12:35 | Consultation ---
History of Present Illness - Reason for Consult Consult date: 08/27/17 - History of Present Illness 82 [facility] old male [facility] abnormalities. According to the transfer sheet his vital signs were stable and she was afebrile at [facility]. He apparently had laboratory and EKG worsening renal function. The patient was recently admitted to this facility. This is a gentleman with almost innumerable comorbidities. He is diabetic. 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 He has had previous strokes associated with left hemiparesthesias and contracture. He has a suprapubic catheter. He is had numerous UTIs. His last BUN and creatinine on August 16 were 47 and 21 respectively. Apparently he is a full CODE STATUS. He is poorly verbal. However, he is able to communicate to me that he really does not want aggressive care (he did not really seem to be very interested and even having a peripheral IV started). SPT in tact - 14 F changed to 16 F (08-28-17) - old tube have mucus debris CTAP - bilat hydro, small kidney stones BPH, gall stones ---hydro chronic per Dr. daigle--pt seen in past A/P bilat hydro, small kidney stones CVA continue SPT---change q 4-6 weeks Medications and Allergies Allergies Allergy/AdvReac Type Severity Reaction Status Date / Time No Known Allergies Allergy Verified 07/07/15 16:02 Home Medications Medication Instructions Recorded Confirmed Last Taken Type Acetaminophen [Acetaminophen TAB] 650 mg PO Q6HR PRN 11/10/14 08/26/17 Unknown History Clopidogrel [Plavix] 75 mg PO DAILY 11/10/14 08/26/17 09/02/15 09:00 History Ferrous Sulfate [Ferrous Sulfate 5 ml PO DAILY 11/10/14 08/26/17 09/02/15 09:00 History Oral Liq 220 Mg/5 Ml] Furosemide [Lasix TAB] 20 mg PO QDAY 11/10/14 08/26/17 09/02/15 09:00 History LORazepam [Ativan] 1 mg PO TID PRN 11/10/14 08/26/17 Unknown History Multivitamin Tab W-MINERAL 1 each PO DAILY 11/10/14 08/26/17 09/02/15 09:00 History [Multiple Vitamin/Mineral (Theragran M)] Tamsulosin [Flomax] 0.4 mg PO DAILY 11/10/14 08/26/17 09/02/15 09:00 History levETIRAcetam [Keppra TAB] 500 mg PO BID 11/10/14 08/26/17 09/02/15 17:00 History Lactobacillus Acidophilus/Pect 1 each PO DAILY 07/07/15 08/26/17 09/02/15 09:00 History [Acidophilus-Pectin Capsule] Nitrofurantoin Macrocrysta(Nf) 50 mg PO DAILY 08/31/15 08/26/17 Unknown History [Macrodantin CAP] Metoprolol [Lopressor TAB] 50 mg PO Q8H #30 tablet 08/17/17 08/26/17 Unknown Rx Lansoprazole [Prevacid] 30 mg PO DAILY 08/26/17 08/26/17 Unknown History Mirtazapine 7.5 mg PO HS 08/26/17 08/26/17 Unknown History Sennosides [Senna] 17.2 mg PO BID 08/26/17 08/26/17 Unknown History Active Meds: Active Medications Acetaminophen (Tylenol) 650 mg PO Q4H PRN PRN Reason: Pain MILD(1-3)/Fever >100.5/CUADRA Aspirin (Baby Aspirin) 81 mg PO QDAY ONE Stop: 08/27/17 16:09 Famotidine (Pepcid) 20 mg PO QAM [facility] Last Admin: 08/27/17 11:01 Dose: 20 mg Hydralazine HCl (Apresoline) 10 mg IV Q4HR PRN PRN Reason: BP >160/100 Piperacillin Sod/Tazobactam Sod (Zosyn/Ns 2.25 Gm/50ml) 2.25 gm in 50 mls @ 100 mls/hr IV Q8H [facility] Last Admin: 08/27/17 06:10 Dose: Not Given Dextrose (D5w) 1,000 mls @ 125 mls/hr IV DIRECT [facility] Lactobacillus Acidophilus (Lactinex) 1 each PO DAILY [facility] Levetiracetam (Keppra) 500 mg PO BID [facility] Last Admin: 08/27/17 11:02 Dose: 500 mg Lorazepam (Ativan) 1 mg PO TID PRN PRN Reason: Anxiety Metoprolol Tartrate (Lopressor) 50 mg PO Q8HR [facility] Last Admin: 08/27/17 04:28 Dose: Not Given Mirtazapine (Remeron) 7.5 mg PO HS [facility] Miscellaneous Medication (Nitrofurantoin Macrocrysta(Nf)) 50 mg PO DAILY [facility] Morphine Sulfate (Morphine) 2 mg IV Q4H PRN PRN Reason: Pain, Moderate (4-6) Multivitamins/Minerals (Theragran-M Tab) 1 each PO DAILY [facility] Last Admin: 08/27/17 11:02 Dose: 1 each Ondansetron HCl (Zofran) 4 mg IV Q8H PRN PRN Reason: Nausea And Vomiting Senna (Senokot) 17.2 mg PO BID [facility] Last Admin: 08/27/17 11:02 Dose: 17.2 mg Sodium Chloride (Sodium Chloride Flush Syringe 10 Ml) 10 ml IV BID [facility] Last Admin: 08/27/17 11:16 Dose: 10 ml Sodium Chloride (Sodium Chloride Flush Syringe 10 Ml) 10 ml IV PRN PRN PRN Reason: LINE FLUSH Tamsulosin HCl (Flomax) 0.4 mg PO DAILY [facility] Last Admin: 08/27/17 11:02 Dose: 0.4 mg Vancomycin HCl (Vancomycin Pharmacy To Dose) 1 each IV PKCONSULT [facility]; Protocol Exam - Constitutional Vitals: Temp Pulse Resp BP Pulse Ox 98.7 F 103 H 10 L 224/97 100 08/26/17 12:36 08/27/17 07:56 08/26/17 23:10 08/27/17 07:56 08/27/17 07:56 Results - Labs CBC & Chem 7: 08/28/17 04:42 08/28/17 04:42 Labs: Abnormal lab results 08/26/17 08/26/17 08/26/17 Range/Units 12:18 12:18 12:18 WBC 13.4 H (4.5-11.0) K/mm3 MCHC 31 L (32-34) % RDW 16.0 H (13.2-15.2) % Plt Count 513 H (140-440) K/mm3 Lymph % (Auto) 8.0 L (13.4-35.0) % Lymph # 1.1 L (1.2-5.4) K/mm3 [place] # 0.9 H (0.0-0.8) K/mm3 Seg Neutrophils % 82.8 H (40.0-70.0) % Seg Neutrophils # 11.1 H (1.8-7.7) K/mm3 PT (12.2-14.9) Sec. INR (0.87-1.13) Sodium 157 H (137-145) mmol/L Potassium 5.2 H (3.6-5.0) mmol/L Chloride 118.9 H (98-107) mmol/L Carbon Dioxide (22-30) mmol/L BUN 110 H (9-20) mg/dL Creatinine 6.1 H (0.8-1.5) mg/dL Glucose 177 H (75-100) mg/dL Hemoglobin A1c (4-6) % Phosphorus (2.5-4.5) mg/dL Magnesium 2.80 H (1.7-2.3) mg/dL Direct Bilirubin 0.3 H (0-0.2) mg/dL ALT < 5 L (7-56) units/L Total Creatine Kinase 243 H (55-170) units/L NT-Pro-B Natriuret Pep 1539 H (0-900) pg/mL Total Protein 8.9 H (6.3-8.2) g/dL Albumin 2.9 L (3.9-5) g/dL Urine WBC (Auto) (0.0-6.0) /HPF 08/26/1718 08/26/17 Range/Units 12:18 12:54 13:06 WBC (4.5-11.0) K/mm3 MCHC (32-34) % RDW (13.2-15.2) % Plt Count (140-440) K/mm3 Lymph % (Auto) (13.4-35.0) % Lymph # (1.2-5.4) K/mm3 [place] # (0.0-0.8) K/mm3 Seg Neutrophils % (40.0-70.0) % Seg Neutrophils # (1.8-7.7) K/mm3 PT 15.7 H (12.2-14.9) Sec. INR 1.18 H (0.87-1.13) Sodium (137-145) mmol/L Potassium (3.6-5.0) mmol/L Chloride (98-107) mmol/L Carbon Dioxide (22-30) mmol/L BUN (9-20) mg/dL Creatinine (0.8-1.5) mg/dL Glucose (75-100) mg/dL Hemoglobin A1c (4-6) % Phosphorus 4.80 H (2.5-4.5) mg/dL Magnesium (1.7-2.3) mg/dL Direct Bilirubin (0-0.2) mg/dL ALT (7-56) units/L Total Creatine Kinase (55-170) units/L NT-Pro-B Natriuret Pep (0-900) pg/mL Total Protein (6.3-8.2) g/dL Albumin (3.9-5) g/dL Urine WBC (Auto) > 182.0 H (0.0-6.0) /HPF 08/27/17 08/27/17 Range/Units 08:19 08:19 WBC (4.5-11.0) K/mm3 MCHC (32-34) % RDW (13.2-15.2) % Plt Count (140-440) K/mm3 Lymph % (Auto) (13.4-35.0) % Lymph # (1.2-5.4) K/mm3 [place] # (0.0-0.8) K/mm3 Seg Neutrophils % (40.0-70.0) % Seg Neutrophils # (1.8-7.7) K/mm3 PT (12.2-14.9) Sec. INR (0.87-1.13) Sodium 160 H (137-145) mmol/L Potassium 5.6 H (3.6-5.0) mmol/L Chloride 122.8 H (98-107) mmol/L Carbon Dioxide 19 L (22-30) mmol/L BUN 117 H (9-20) mg/dL Creatinine 6.0 H (0.8-1.5) mg/dL Glucose 163 H (75-100) mg/dL Hemoglobin A1c 6.4 H (4-6) % Phosphorus (2.5-4.5) mg/dL Magnesium (1.7-2.3) mg/dL Direct Bilirubin (0-0.2) mg/dL ALT (7-56) units/L Total Creatine Kinase (55-170) units/L NT-Pro-B Natriuret Pep (0-900) pg/mL Total Protein (6.3-8.2) g/dL Albumin (3.9-5) g/dL Urine WBC (Auto) (0.0-6.0) /HPF
[2017-08-27] MEDS: LACTINEX PO SCH (13:05)
--- NOTE | 2017-08-27 13:34 | Consultation ---
History of Present Illness - Reason for Consult Consult date: 08/27/17 Hydronephrosis - History of Present Illness 82 year old male sent from the long term for evaluation of laboratory abnormalities. According to the transfer sheet his vital signs were stable and she was afebrile at [facility]. He apparently had laboratory and EKG worsening renal function. The patient was recently admitted to this facility. 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 He is poorly verbal. However, he is able to communicate to me that he really does not want aggressive care (he did not really seem to be very interested and even having a peripheral IV started), but is still full code. CT was evaluated which demonstrated bilateral hydronephrosis and hydroureter without obstructing calculi with hypertrophic bladder and suprapubic catheter. Patient is alert and oriented 0. Past History Past Medical History: diabetes, renal failure, stroke, other (subdural hematomas ) Past Surgical History: Other (not obtainable) Social history: other (not obtainable) Family history: other (not obtainable) Medications and Allergies Allergies Allergy/AdvReac Type Severity Reaction Status Date / Time No Known Allergies Allergy Verified 07/07/15 16:02 Home Medications Medication Instructions Recorded Confirmed Last Taken Type Acetaminophen [Acetaminophen TAB] 650 mg PO Q6HR PRN 11/10/14 08/26/17 Unknown History Clopidogrel [Plavix] 75 mg PO DAILY 11/10/14 08/26/17 09/02/15 09:00 History Ferrous Sulfate [Ferrous Sulfate 5 ml PO DAILY 11/10/14 08/26/17 09/02/15 09:00 History Oral Liq 220 Mg/5 Ml] Furosemide [Lasix TAB] 20 mg PO QDAY 11/10/14 08/26/17 09/02/15 09:00 History LORazepam [Ativan] 1 mg PO TID PRN 11/10/14 08/26/17 Unknown History Multivitamin Tab W-MINERAL 1 each PO DAILY 11/10/14 08/26/17 09/02/15 09:00 History [Multiple Vitamin/Mineral (Theragran M)] Tamsulosin [Flomax] 0.4 mg PO DAILY 11/10/14 08/26/17 09/02/15 09:00 History levETIRAcetam [Keppra TAB] 500 mg PO BID 11/10/14 08/26/17 09/02/15 17:00 History Lactobacillus Acidophilus/Pect 1 each PO DAILY 07/07/15 08/26/17 09/02/15 09:00 History [Acidophilus-Pectin Capsule] Nitrofurantoin Macrocrysta(Nf) 50 mg PO DAILY 08/31/15 08/26/17 Unknown History [Macrodantin CAP] Metoprolol [Lopressor TAB] 50 mg PO Q8H #30 tablet 08/17/17 08/26/17 Unknown Rx Lansoprazole [Prevacid] 30 mg PO DAILY 08/26/17 08/26/17 Unknown History Mirtazapine 7.5 mg PO HS 08/26/17 08/26/17 Unknown History Sennosides [Senna] 17.2 mg PO BID 08/26/17 08/26/17 Unknown History Active Meds: Active Medications Acetaminophen (Tylenol) 650 mg PO Q4H PRN PRN Reason: Pain MILD(1-3)/Fever >100.5/CUADRA Aspirin (Baby Aspirin) 81 mg PO QDAY ONE Stop: 08/27/17 16:09 Famotidine (Pepcid) 20 mg PO QAM [facility] Last Admin: 08/27/17 11:01 Dose: 20 mg Hydralazine HCl (Apresoline) 10 mg IV Q4HR PRN PRN Reason: BP >160/100 Piperacillin Sod/Tazobactam Sod (Zosyn/Ns 2.25 Gm/50ml) 2.25 gm in 50 mls @ 100 mls/hr IV Q8H [facility] Last Admin: 08/27/17 06:10 Dose: Not Given Dextrose (D5w) 1,000 mls @ 125 mls/hr IV DIRECT [facility] Lactobacillus Acidophilus (Lactinex) 1 each PO DAILY [facility] Last Admin: 08/27/17 13:05 Dose: 1 each Levetiracetam (Keppra) 500 mg PO BID [facility] Last Admin: 08/27/17 11:02 Dose: 500 mg Lorazepam (Ativan) 1 mg PO TID PRN PRN Reason: Anxiety Metoprolol Tartrate (Lopressor) 50 mg PO Q8HR [facility] Last Admin: 08/27/17 04:28 Dose: Not Given Mirtazapine (Remeron) 7.5 mg PO [facility] Miscellaneous Medication (Nitrofurantoin Macrocrysta(Nf)) 50 mg PO DAILY [facility] Morphine Sulfate (Morphine) 2 mg IV Q4H PRN PRN Reason: Pain, Moderate (4-6) Multivitamins/Minerals (Theragran-M Tab) 1 each PO DAILY [facility] Last Admin: 08/27/17 11:02 Dose: 1 each Ondansetron HCl (Zofran) 4 mg IV Q8H PRN PRN Reason: Nausea And Vomiting Senna (Senokot) 17.2 mg PO BID [facility] Last Admin: 08/27/17 11:02 Dose: 17.2 mg Sodium Chloride (Sodium Chloride Flush Syringe 10 Ml) 10 ml IV BID [facility] Last Admin: 08/27/17 11:16 Dose: 10 ml Sodium Chloride (Sodium Chloride Flush Syringe 10 Ml) 10 ml IV PRN PRN PRN Reason: LINE FLUSH Tamsulosin HCl (Flomax) 0.4 mg PO DAILY [facility] Last Admin: 08/27/17 11:02 Dose: 0.4 mg Vancomycin HCl (Vancomycin Pharmacy To Dose) 1 each IV PKCONSULT [facility]; Protocol Review of Systems ROS unobtainable: due to mental status Exam - Constitutional Vitals: Temp Pulse Resp BP Pulse Ox 98.7 F 103 H 10 L 224/97 100 08/26/17 12:36 08/27/17 07:56 08/26/17 23:10 08/27/17 07:56 08/27/17 07:56 General appearance: Present: no acute distress - EENT ENT: other (not oriented) - Neck Neck: Present: supple - Respiratory Respiratory effort: normal - Abdominal General gastrointestinal: Present: soft, other (suprapubic catheter noted) - Musculoskeletal Musculoskeletal: other (left hemiparesis) - Psychiatric Psychiatric: no cooperative, other (alert and oriented 0) Results - Labs CBC & Chem 7: 08/26/17 12:18 08/27/17 08:19 Labs: Abnormal lab results 08/26/17 08/26/17 08/27/17 Range/Units 12:18 12:18 08:19 Sodium 160 H (137-145) mmol/L Potassium 5.6 H (3.6-5.0) mmol/L Chloride 122.8 H (98-107) mmol/L Carbon Dioxide 19 L (22-30) mmol/L BUN 117 H (9-20) mg/dL Creatinine 6.0 H (0.8-1.5) mg/dL Glucose 163 H (75-100) mg/dL Hemoglobin A1c (4-6) % Phosphorus 4.80 H (2.5-4.5) mg/dL Magnesium 2.80 H (1.7-2.3) mg/dL Direct Bilirubin 0.3 H (0-0.2) mg/dL ALT < 5 L (7-56) units/L Total Creatine Kinase 243 H (55-170) units/L NT-Pro-B Natriuret Pep 1539 H (0-900) pg/mL Total Protein 8.9 H (6.3-8.2) g/dL Albumin 2.9 L (3.9-5) g/dL 08/27/17 Range/Units 08:19 Sodium (137-145) mmol/L Potassium (3.6-5.0) mmol/L Chloride (98-107) mmol/L Carbon Dioxide (22-30) mmol/L BUN (9-20) mg/dL Creatinine (0.8-1.5) mg/dL Glucose (75-100) mg/dL Hemoglobin A1c 6.4 H (4-6) % Phosphorus (2.5-4.5) mg/dL Magnesium (1.7-2.3) mg/dL Direct Bilirubin (0-0.2) mg/dL ALT (7-56) units/L Total Creatine Kinase (55-170) units/L NT-Pro-B Natriuret Pep (0-900) pg/mL Total Protein (6.3-8.2) g/dL Albumin (3.9-5) g/dL - Imaging and Cardiology CT scan - abdomen: report reviewed, image reviewed Assessment and Plan 82-year-old male with numerous comorbidities who presents with acute renal failure, bilateral hydronephrosis, and suprapubic catheter with hypertrophic bladder. Patient has a urinary tract infection, his mental status has worsened, and given the indwelling suprapubic catheter without prior imaging, the patient was originally consented for nephrostomy tube placements. CT imaging from [address] Garcia, and upon review, CT from 2013 was obtained which demonstrates chronic bilateral hydronephrosis and hydroureter. Given the chronicity of these findings, and a frail nature of the patient, we elected to cancel nephrostomy tube placement. We all agree upon exchanging the suprapubic catheter. If situation changes, and nephrostomy tube placement is required, then please consult interventional radiology again.
[2017-08-27] MEDS ORDERED: BABY ASPIRIN PO ONE (16:08)
[2017-08-27] MEDS: D5W 1,000 ML IV SCH (16:11)
[2017-08-27] MEDS: REMERON PO SCH (23:40)
[2017-08-28] MEDS: ZOSYN/NS 2.25 GM/50ML 2.25 GM/50 ML BAG IV SCH ×4 (01:39→22:08)
[2017-08-28] MEDS: LOPRESSOR PO SCH ×3 (05:29→22:10)
[2017-08-28 05:53] LABS: Basophils # (Auto) 0.1 K/mm3 (0.0-0.1); Basophils % (Auto) 0.9 % (0.0-1.8); Eosinophils # (Auto) 0.3 K/mm3 (0.0-0.4); Eosinophils % (Auto) 4.3 % (0.0-4.3); Hematocrit 34.9 % (35.5-45.6); Hemoglobin 11.5 gm/dl (11.8-15.2); Lymphocytes # (Auto) 0.8 K/mm3 (1.2-5.4); Lymphocytes % (Auto) 10.1 % (13.4-35.0); Mean Corpuscular HGB Conc 33 % (32-34); Mean Corpuscular Hemoglobin 31 pg (28-32); Mean Corpuscular Volume 95 fl (84-94); Monocytes # (Auto) 0.7 K/mm3 (0.0-0.8); Monocytes % (Auto) 8.7 % (0.0-7.3); Platelet Count 405 K/mm3 (140-440); Red Blood Count 3.69 M/mm3 (3.65-5.03); Red Cell Distribution Width 15.9 % (13.2-15.2)
[2017-08-28 06:16] LABS: Albumin 2.8 g/dL (3.9-5); Calcium 8.5 mg/dL (8.4-10.2)
[2017-08-28] MEDS: D5W 1,000 ML IV SCH ×2 (06:42→21:12)
[2017-08-28] MEDS: LACTINEX PO SCH (10:13)
[2017-08-28] MEDS: PEPCID PO SCH (10:13)
[2017-08-28] MEDS: THERAGRAN-M Tab PO SCH (10:14)
[2017-08-28] MEDS: KEPPRA PO SCH ×2 (10:14→22:08)
[2017-08-28] MEDS: SENOKOT PO SCH ×2 (10:14→22:08)
[2017-08-28] MEDS: FLOMAX PO SCH (10:14)
[2017-08-28] MEDS: SODIUM CHLORIDE FLUSH SYRINGE 10 ML IV SCH ×2 (10:15→21:13)
--- NOTE | 2017-08-28 12:01 | Progress Note ---
Assessment and Plan Impression: * Acute kidney injury due to multifactorial etiologies - prerenal azotemia due to dehydration vs obstructive uropathy * Bilateral hydronephrosis in setting of suprapubic catheter * Hypernatremia * Hyperkalemia * Type II DM * Hx of CVA * uti with sepsis Plan: * renal prognosis is guarded * IR consulted, PCNT now on hold, patient desires no aggressive care * continue ivfs--S0Y--Iq noted * he appears uremic so will need hemodialysis or PCNT--if none desired the he needs a hospice/palliative care consult * iv abx for uti * Kayexelate prn * daily lytes * strict i/os * Empiric abx per primary team * Avoid potential nephrotoxins * Dose medications for renal function Subjective Date of service: 08/28/17 Principal diagnosis: shelby, roosevelt hydro Interval history: resting well in bed today, events noted Objective - Vital Signs Vital signs: Vital Signs - 12hr 08/28/17 08/28/17 08/28/17 02:38 05:29 07:00 Temperature 98.4 F 97.8 F Pulse Rate 64 64 65 Respiratory 20 20 Rate Blood Pressure 152/69 152/69 133/63 O2 Sat by Pulse 100 96 Oximetry - Lab 08/28/17 04:42 08/28/17 04:42 Most recent lab results Calcium 8.5 mg/dL (8.4-10.2) 08/28/17 04:42 Phosphorus 4.80 mg/dL (2.5-4.5) H 08/26/17 12:18 Magnesium 2.80 mg/dL (1.7-2.3) H 08/26/17 12:18
--- NOTE | 2017-08-28 14:39 | Progress Note ---
Assessment and Plan Assessment and plan: 82-year-old man from [facility], history of stroke, is aphasic, contracted and bedbound. Other history of reflux uropathy status post suprapubic catheter, with recurrent UTIs. Past medical history: Reflux uropathy, status post suprapubic catheter, hemiplegia following CVA, history of MRSA sepsis, BPH, nephrolithiasis, peripheral arterial disease, aphasia, and deficiency anemia, chronic kidney disease stage III, ventral hernia, diverticulosis of colon, advanced dementia, CAD status post CABG, seizure disorder, Sepsis due to UTI and sacral decub infection continue abx Obstructive uropathy Per son, they want treatment at this time. He is unlikely to benefit from invasive urologic procedure, per son, continue abx, IVF and SPC cath exchange is ok Hemiplegia following CVA, continue supportive care Hypernatremia Was likely due to dehydration, improving, continue D5 water Acute on chronic kidney disease, vasomotor nephropathy Continue IV fluids, improving Metabolic encephalopathy due to infection and sepsis, improving History Interval history: remains bedbound aphasic, does not communicate well no fever, no agitation, no seizures, no chills observed by Nursing staff Hospitalist Physical - Physical exam Narrative exam: General.: Appears well, no distress, nontoxic, cachectic HEENT: Moist mucous membranes, extraocular muscles intact, no lymphadenopathy Neck: supple Cardiac: S1-S2 heard Lungs: clear to auscultation bilaterally Abdomen: soft , nontender, nondistended, bowel sounds positive Extremities: Extremities are contracted Skin: STAGE 2 ULCERS NOTED TO BOTH LEFT AND RIGHT BUTTOCKS Neurologic: A phasic, opens eyes to voice, says a few words, unable to maintain a conversation, obeys simple commands - Constitutional Vitals: Temp Pulse Resp BP Pulse Ox 98.5 F 66 18 109/55 96 08/28/17 13:30 08/28/17 13:30 08/28/17 13:30 08/28/17 13:30 08/28/17 13:30 General appearance: Present: no acute distress Results - Labs CBC & Chem 7: 09/01/17 05:29 09/01/17 05:29 Labs: Laboratory Last Values WBC 7.9 K/mm3 (4.5-11.0) 08/28/17 04:42 RBC 3.69 M/mm3 (3.65-5.03) 08/28/17 04:42 Hgb 11.5 gm/dl (11.8-15.2) L 08/28/17 04:42 Hct 34.9 % (35.5-45.6) L 08/28/17 04:42 MCV 95 fl (84-94) H 08/28/17 04:42 MCH 31 pg (28-32) 08/28/17 04:42 MCHC 33 % (32-34) 08/28/17 04:42 RDW 15.9 % (13.2-15.2) H 08/28/17 04:42 Plt Count 405 K/mm3 (140-440) 08/28/17 04:42 Lymph % (Auto) 10.1 % (13.4-35.0) L 08/28/17 04:42 [place] % (Auto) 8.7 % (0.0-7.3) H 08/28/17 04:42 Eos % (Auto) 4.3 % (0.0-4.3) 08/28/17 04:42 Baso % (Auto) 0.9 % (0.0-1.8) 08/28/17 04:42 Lymph # 0.8 K/mm3 (1.2-5.4) L 08/28/17 04:42 [place] # 0.7 K/mm3 (0.0-0.8) 08/28/17 04:42 Eos # 0.3 K/mm3 (0.0-0.4) 08/28/17 04:42 Baso # 0.1 K/mm3 (0.0-0.1) 08/28/17 04:42 Seg Neutrophils % 76.0 % (40.0-70.0) H 08/28/17 04:42 Seg Neutrophils # 6.0 K/mm3 (1.8-7.7) 08/28/17 04:42 PT 15.7 Sec. (12.2-14.9) H 08/26/17 12:54 INR 1.18 (0.87-1.13) H 08/26/17 12:54 APTT 32.8 Sec. (24.2-36.6) 08/26/17 12:54 Sodium 157 mmol/L (137-145) H 08/28/17 04:42 Potassium 5.0 mmol/L (3.6-5.0) 08/28/17 04:42 Chloride 121.6 mmol/L (98-107) H 08/28/17 04:42 Carbon Dioxide 21 mmol/L (22-30) L 08/28/17 04:42 Anion Gap 19 mmol/L 08/28/17 04:42 BUN 106 mg/dL (9-20) H 08/28/17 04:42 Creatinine 5.1 mg/dL (0.8-1.5) H 08/28/17 04:42 Estimated GFR 13 ml/min 08/28/17 04:42 BUN/Creatinine Ratio 21 % 08/28/17 04:42 Glucose 201 mg/dL (75-100) H 08/28/17 04:42 Hemoglobin A1c 6.4 % (4-6) H 08/27/17 08:19 Calcium 8.5 mg/dL (8.4-10.2) 08/28/17 04:42 Phosphorus 4.80 mg/dL (2.5-4.5) H 08/26/17 12:18 Magnesium 2.80 mg/dL (1.7-2.3) H 08/26/17 12:18 Total Bilirubin 0.50 mg/dL (0.1-1.2) 08/28/17 04:42 Direct Bilirubin 0.3 mg/dL (0-0.2) H 08/26/17 12:18 Indirect Bilirubin 0.4 mg/dL 08/26/17 12:18 AST 10 units/L (5-40) 08/28/17 04:42 ALT 9 units/L (7-56) 08/28/17 04:42 Alkaline Phosphatase 96 units/L (35-129) 08/28/17 04:42 Total Creatine Kinase 243 units/L (55-170) H 08/26/17 12:18 CK-MB (CK-2) 2.3 ng/mL (0.0-4.0) 08/26/17 12:18 CK-MB (CK-2) Rel Index 0.9 (0-4) 08/26/17 12:18 NT-Pro-B Natriuret Pep 1539 pg/mL (0-900) H 08/26/17 12:18 Total Protein 7.0 g/dL (6.3-8.2) D 08/28/17 04:42 Albumin 2.8 g/dL (3.9-5) L 08/28/17 04:42 Albumin/Globulin Ratio 0.7 % 08/28/17 04:42 Urine Color Yellow (Yellow) 08/26/17 13:06 Urine Turbidity Clear (Clear) 08/26/17 13:06 Urine pH 7.0 (5.0-7.0) 08/26/17 13:06 Ur Specific [place] 1.013 (1.003-1.030) 08/26/17 13:06 Urine Protein 100 mg/dl mg/dL (Negative) 08/26/17 13:06 Urine Glucose (UA) Neg mg/dL (Negative) 08/26/17 13:06 Urine Ketones Neg mg/dL (Negative) 08/26/17 13:06 Urine Blood Lg (Negative) 08/26/17 13:06 Urine Nitrite Neg (Negative) 08/26/17 13:06 Urine Bilirubin Neg (Negative) 08/26/17 13:06 Urine Urobilinogen < 2.0 mg/dL (<2.0) 08/26/17 13:06 Ur Leukocyte Esterase Lg (Negative) 08/26/17 13:06 Urine WBC (Auto) > 182.0 /HPF (0.0-6.0) H 08/26/17 13:06 Urine RBC (Auto) 32.0 /HPF (0.0-6.0) 08/26/17 13:06 Urine WBC Clumps 3+ /HPF 08/26/17 13:06 Urine Mucus Few /HPF 08/26/17 13:06 Random Vancomycin 4.0 ug/mL (0-40.0) 08/28/17 04:42
[2017-08-28] MEDS: REMERON PO SCH (22:07)
[2017-08-29] MEDS: D5W 1,000 ML IV SCH ×3 (05:54→23:37)
[2017-08-29] MEDS: ZOSYN/NS 2.25 GM/50ML 2.25 GM/50 ML BAG IV SCH ×3 (06:22→23:37)
[2017-08-29] MEDS: LOPRESSOR PO SCH ×3 (06:22→22:21)
[2017-08-29] MEDS: THERAGRAN-M Tab PO SCH ×2 (08:57→10:00)
[2017-08-29] MEDS: LACTINEX PO SCH ×2 (08:57→10:00)
[2017-08-29] MEDS: PEPCID PO SCH ×2 (08:57→10:00)
[2017-08-29] MEDS: KEPPRA PO SCH ×3 (08:58→22:21)
[2017-08-29] MEDS: SODIUM CHLORIDE FLUSH SYRINGE 10 ML IV SCH ×3 (08:58→22:23)
[2017-08-29] MEDS: FLOMAX PO SCH ×2 (08:58→10:00)
[2017-08-29] MEDS: SENOKOT PO SCH ×3 (08:58→22:20)
--- NOTE | 2017-08-29 11:23 | Progress Note ---
Assessment and Plan Impression: * Acute kidney injury due to multifactorial etiologies - prerenal azotemia due to dehydration vs obstructive uropathy * Bilateral hydronephrosis in setting of suprapubic catheter * Hypernatremia * Hyperkalemia * Type II DM * Hx of CVA * uti with sepsis Plan: * renal prognosis is guarded * follow up labs today and daily * IR consulted, PCNT now on hold, patient desires no aggressive care per IR * continue ivfs--C3Q--Wf noted * he appears uremic so will need hemodialysis or PCNT--if none desired the he needs a hospice/palliative care consult * iv abx for uti * Kayexelate prn * daily lytes * strict i/os * Empiric abx per primary team * Avoid potential nephrotoxins * Dose medications for renal function Subjective Date of service: 08/29/17 Principal diagnosis: shelby, roosevelt hydro Interval history: resting well in bed today, events noted Objective - Exam Narrative Exam: - General Limitations: Altered Mental Status, Physical Limitation General appearance: other (quite volume depleted) - Head Head exam: Present: atraumatic - Eye Eye exam: Absent: scleral icterus - ENT ENT exam: Present: mucous membranes dry - Neck Neck exam: Present: normal inspection - Respiratory Respiratory exam: Present: normal lung sounds bilaterally. Absent: respiratory distress, accessory muscle use - Cardiovascular Cardiovascular Exam: Present: regular rate, normal rhythm. Absent: systolic murmur, diastolic murmur, rubs, gallop - GI/Abdominal GI/Abdominal exam: Present: soft, normal bowel sounds, other (the suprapubic site has white purulent material. This was sent for culture. The catheter is draining urine which looks turbid.). Absent: distended, tenderness, guarding, rebound, rigid - Extremities Exam Extremities exam: Present: other (contracture of the left upper extremity and generalized rigidity) - Neurological Exam Neurological exam: Present: other (no acute focal deficit) - Vital Signs Vital signs: Vital Signs - 12hr 08/29/17 08/29/17 08/29/17 03:16 06:22 07:43 Temperature 97.9 F 98.3 F Pulse Rate 64 70 61 Respiratory 18 14 Rate Blood Pressure 154/68 146/74 138/68 O2 Sat by Pulse 100 100 Oximetry - Lab 08/28/17 04:42 08/28/17 04:42 Most recent lab results Calcium 8.5 mg/dL (8.4-10.2) 08/28/17 04:42 Phosphorus 4.80 mg/dL (2.5-4.5) H 08/26/17 12:18 Magnesium 2.80 mg/dL (1.7-2.3) H 08/26/17 12:18
--- NOTE | 2017-08-29 12:39 | Progress Note ---
Assessment and Plan Assessment and plan: 82-year-old man from [facility], history of stroke, is aphasic, contracted and bedbound. Other history of reflux uropathy status post suprapubic catheter, with recurrent UTIs. Past medical history: Reflux uropathy, status post suprapubic catheter, hemiplegia following CVA, history of MRSA sepsis, BPH, nephrolithiasis, peripheral arterial disease, aphasia, and deficiency anemia, chronic kidney disease stage III, ventral hernia, diverticulosis of colon, advanced dementia, CAD status post CABG, seizure disorder, Sepsis due to UTI and sacral decub infection continue abx Obstructive uropathy Per son, they want treatment at this time. He is unlikely to benefit from invasive urologic procedure, per son, continue abx, IVF and SPC cath exchange is ok Hemiplegia following CVA, continue supportive care Hypernatremia Was likely due to dehydration, improving, continue D5 water Acute on chronic kidney disease, vasomotor nephropathy Continue IV fluids, improving Metabolic encephalopathy due to infection and sepsis, improving History Interval history: remains bedbound aphasic, does not communicate well no fever, no agitation, no seizures, no chills observed by Nursing staff Hospitalist Physical - Physical exam Narrative exam: General.: Appears well, no distress, nontoxic, cachectic HEENT: Moist mucous membranes, extraocular muscles intact, no lymphadenopathy Neck: supple Cardiac: S1-S2 heard Lungs: clear to auscultation bilaterally Abdomen: soft , nontender, nondistended, bowel sounds positive Extremities: Extremities are contracted Skin: STAGE 2 ULCERS NOTED TO BOTH LEFT AND RIGHT BUTTOCKS Neurologic: A phasic, opens eyes to voice, says a few words, unable to maintain a conversation, obeys simple commands - Constitutional Vitals: Temp Pulse Resp BP Pulse Ox 98.3 F 61 14 138/68 100 08/29/17 07:43 08/29/17 07:43 08/29/17 07:43 08/29/17 07:43 08/29/17 07:43 General appearance: Present: no acute distress Results - Labs CBC & Chem 7: 09/01/17 05:29 09/01/17 05:29 Labs: Laboratory Last Values WBC 7.9 K/mm3 (4.5-11.0) 08/28/17 04:42 RBC 3.69 M/mm3 (3.65-5.03) 08/28/17 04:42 Hgb 11.5 gm/dl (11.8-15.2) L 08/28/17 04:42 Hct 34.9 % (35.5-45.6) L 08/28/17 04:42 MCV 95 fl (84-94) H 08/28/17 04:42 MCH 31 pg (28-32) 08/28/17 04:42 MCHC 33 % (32-34) 08/28/17 04:42 RDW 15.9 % (13.2-15.2) H 08/28/17 04:42 Plt Count 405 K/mm3 (140-440) 08/28/17 04:42 Lymph % (Auto) 10.1 % (13.4-35.0) L 08/28/17 04:42 [place] % (Auto) 8.7 % (0.0-7.3) H 08/28/17 04:42 Eos % (Auto) 4.3 % (0.0-4.3) 08/28/17 04:42 Baso % (Auto) 0.9 % (0.0-1.8) 08/28/17 04:42 Lymph # 0.8 K/mm3 (1.2-5.4) L 08/28/17 04:42 [place] # 0.7 K/mm3 (0.0-0.8) 08/28/17 04:42 Eos # 0.3 K/mm3 (0.0-0.4) 08/28/17 04:42 Baso # 0.1 K/mm3 (0.0-0.1) 08/28/17 04:42 Seg Neutrophils % 76.0 % (40.0-70.0) H 08/28/17 04:42 Seg Neutrophils # 6.0 K/mm3 (1.8-7.7) 08/28/17 04:42 PT 15.7 Sec. (12.2-14.9) H 08/26/17 12:54 INR 1.18 (0.87-1.13) H 08/26/17 12:54 APTT 32.8 Sec. (24.2-36.6) 08/26/17 12:54 Sodium 157 mmol/L (137-145) H 08/28/17 04:42 Potassium 5.0 mmol/L (3.6-5.0) 08/28/17 04:42 Chloride 121.6 mmol/L (98-107) H 08/28/17 04:42 Carbon Dioxide 21 mmol/L (22-30) L 08/28/17 04:42 Anion Gap 19 mmol/L 08/28/17 04:42 BUN 106 mg/dL (9-20) H 08/28/17 04:42 Creatinine 5.1 mg/dL (0.8-1.5) H 08/28/17 04:42 Estimated GFR 13 ml/min 08/28/17 04:42 BUN/Creatinine Ratio 21 % 08/28/17 04:42 Glucose 201 mg/dL (75-100) H 08/28/17 04:42 Hemoglobin A1c 6.4 % (4-6) H 08/27/17 08:19 Calcium 8.5 mg/dL (8.4-10.2) 08/28/17 04:42 Phosphorus 4.80 mg/dL (2.5-4.5) H 08/26/17 12:18 Magnesium 2.80 mg/dL (1.7-2.3) H 08/26/17 12:18 Total Bilirubin 0.50 mg/dL (0.1-1.2) 08/28/17 04:42 Direct Bilirubin 0.3 mg/dL (0-0.2) H 08/26/17 12:18 Indirect Bilirubin 0.4 mg/dL 08/26/17 12:18 AST 10 units/L (5-40) 08/28/17 04:42 ALT 9 units/L (7-56) 08/28/17 04:42 Alkaline Phosphatase 96 units/L (35-129) 08/28/17 04:42 Total Creatine Kinase 243 units/L (55-170) H 08/26/17 12:18 CK-MB (CK-2) 2.3 ng/mL (0.0-4.0) 08/26/17 12:18 CK-MB (CK-2) Rel Index 0.9 (0-4) 08/26/17 12:18 NT-Pro-B Natriuret Pep 1539 pg/mL (0-900) H 08/26/17 12:18 Total Protein 7.0 g/dL (6.3-8.2) D 08/28/17 04:42 Albumin 2.8 g/dL (3.9-5) L 08/28/17 04:42 Albumin/Globulin Ratio 0.7 % 08/28/17 04:42 Urine Color Yellow (Yellow) 08/26/17 13:06 Urine Turbidity Clear (Clear) 08/26/17 13:06 Urine pH 7.0 (5.0-7.0) 08/26/17 13:06 Ur Specific [place] 1.013 (1.003-1.030) 08/26/17 13:06 Urine Protein 100 mg/dl mg/dL (Negative) 08/26/17 13:06 Urine Glucose (UA) Neg mg/dL (Negative) 08/26/17 13:06 Urine Ketones Neg mg/dL (Negative) 08/26/17 13:06 Urine Blood Lg (Negative) 08/26/17 13:06 Urine Nitrite Neg (Negative) 08/26/17 13:06 Urine Bilirubin Neg (Negative) 08/26/17 13:06 Urine Urobilinogen < 2.0 mg/dL (<2.0) 08/26/17 13:06 Ur Leukocyte Esterase Lg (Negative) 08/26/17 13:06 Urine WBC (Auto) > 182.0 /HPF (0.0-6.0) H 08/26/17 13:06 Urine RBC (Auto) 32.0 /HPF (0.0-6.0) 08/26/17 13:06 Urine WBC Clumps 3+ /HPF 08/26/17 13:06 Urine Mucus Few /HPF 08/26/17 13:06 Random Vancomycin 4.0 ug/mL (0-40.0) 08/28/17 04:42
[2017-08-29 14:13] LABS: Basophils # (Auto) 0.1 K/mm3 (0.0-0.1); Basophils % (Auto) 0.7 % (0.0-1.8); Eosinophils # (Auto) 0.3 K/mm3 (0.0-0.4); Eosinophils % (Auto) 3.7 % (0.0-4.3); Hematocrit 34.3 % (35.5-45.6); Hemoglobin 11.1 gm/dl (11.8-15.2); Lymphocytes # (Auto) 0.9 K/mm3 (1.2-5.4); Lymphocytes % (Auto) 11.6 % (13.4-35.0); Mean Corpuscular HGB Conc 32 % (32-34); Mean Corpuscular Hemoglobin 30 pg (28-32); Mean Corpuscular Volume 94 fl (84-94); Monocytes # (Auto) 0.6 K/mm3 (0.0-0.8); Monocytes % (Auto) 7.8 % (0.0-7.3); Platelet Count 363 K/mm3 (140-440); Red Blood Count 3.66 M/mm3 (3.65-5.03)
[2017-08-29 14:57] LABS: Calcium 8.6 mg/dL (8.4-10.2)
[2017-08-29] MEDS: REMERON PO SCH (22:21)
[2017-08-30] MEDS: LOPRESSOR PO SCH ×3 (06:07→22:07)
[2017-08-30] MEDS: ZOSYN/NS 2.25 GM/50ML 2.25 GM/50 ML BAG IV SCH ×3 (06:07→22:09)
[2017-08-30 07:01] LABS: Basophils # (Auto) 0.1 K/mm3 (0.0-0.1); Basophils % (Auto) 0.7 % (0.0-1.8); Calcium 8.4 mg/dL (8.4-10.2); Eosinophils # (Auto) 0.3 K/mm3 (0.0-0.4); Eosinophils % (Auto) 3.4 % (0.0-4.3); Hemoglobin 11.1 gm/dl (11.8-15.2); Lymphocytes # (Auto) 1.2 K/mm3 (1.2-5.4); Lymphocytes % (Auto) 14.8 % (13.4-35.0); Mean Corpuscular HGB Conc 33 % (32-34); Mean Corpuscular Hemoglobin 31 pg (28-32); Mean Corpuscular Volume 94 fl (84-94); Monocytes # (Auto) 0.6 K/mm3 (0.0-0.8); Monocytes % (Auto) 7.6 % (0.0-7.3); Platelet Count 330 K/mm3 (140-440)
--- NOTE | 2017-08-30 07:16 | Progress Note ---
Assessment and Plan Assessment and plan: 82-year-old man from [facility], history of stroke, is aphasic, contracted and bedbound. Other history of reflux uropathy status post suprapubic catheter, with recurrent UTIs. Past medical history: Reflux uropathy, status post suprapubic catheter, hemiplegia following CVA, history of MRSA sepsis, BPH, nephrolithiasis, peripheral. Serial disease, aphasia, and deficiency anemia, chronic kidney disease stage III, ventral hernia, diverticulosis of colon, advanced dementia, CAD status post CABG, seizure disorder, Sepsis due to UTI Continue antibiotics, urine cultures show mixed organism growth, we'll consult ID Obstructive uropathy per documents, family does not want invasive procedures in this patient. We'll confirm with his next of kin today Hemiplegia following CVA, continue supportive care Hypernatremia Was likely due to dehydration, improving, continue D5 water Acute on chronic kidney disease, vasomotor nephropathy Continue IV fluids, improving History Interval history: remains bedbound aphasic, does not communicate well no fever, no agitation, no seizures, no chills observed by Nursing staff Hospitalist Physical - Physical exam Narrative exam: General.: Appears well, no distress, nontoxic, cachectic HEENT: Moist mucous membranes, extraocular muscles intact, no lymphadenopathy Neck: supple Cardiac: S1-S2 heard Lungs: clear to auscultation bilaterally Abdomen: soft , nontender, nondistended, bowel sounds positive Extremities: Extremities are contracted Skin: STAGE 2 ULCERS NOTED TO BOTH LEFT AND RIGHT BUTTOCKS Neurologic: A phasic, opens eyes to voice, says a few words, unable to maintain a conversation, obeys simple commands - Constitutional Vitals: Temp Pulse Resp BP Pulse Ox 97.4 F L 57 L 18 144/70 89 08/30/17 02:15 08/30/17 06:07 08/30/17 02:15 08/30/17 06:07 08/30/17 02:15 General appearance: Present: no acute distress Results - Labs CBC & Chem 7: 09/01/17 05:29 09/01/17 05:29 Labs: Laboratory Last Values WBC 7.9 K/mm3 (4.5-11.0) 08/30/17 06:01 RBC 3.60 M/mm3 (3.65-5.03) L 08/30/17 06:01 Hgb 11.1 gm/dl (11.8-15.2) L 08/30/17 06:01 Hct 34.0 % (35.5-45.6) L 08/30/17 06:01 MCV 94 fl (84-94) 08/30/17 06:01 MCH 31 pg (28-32) 08/30/17 06:01 MCHC 33 % (32-34) 08/30/17 06:01 RDW 16.0 % (13.2-15.2) H 08/30/17 06:01 Plt Count 330 K/mm3 (140-440) 08/30/17 06:01 Lymph % (Auto) 14.8 % (13.4-35.0) 08/30/17 06:01 [place] % (Auto) 7.6 % (0.0-7.3) H 08/30/17 06:01 Eos % (Auto) 3.4 % (0.0-4.3) 08/30/17 06:01 Baso % (Auto) 0.7 % (0.0-1.8) 08/30/17 06:01 Lymph # 1.2 K/mm3 (1.2-5.4) 08/30/17 06:01 [place] # 0.6 K/mm3 (0.0-0.8) 08/30/17 06:01 Eos # 0.3 K/mm3 (0.0-0.4) 08/30/17 06:01 Baso # 0.1 K/mm3 (0.0-0.1) 08/30/17 06:01 Seg Neutrophils % 73.5 % (40.0-70.0) H 08/30/17 06:01 Seg Neutrophils # 5.8 K/mm3 (1.8-7.7) 08/30/17 06:01 PT 15.7 Sec. (12.2-14.9) H 08/26/17 12:54 INR 1.18 (0.87-1.13) H 08/26/17 12:54 APTT 32.8 Sec. (24.2-36.6) 08/26/17 12:54 Sodium 149 mmol/L (137-145) H 08/30/17 06:01 Potassium 4.4 mmol/L (3.6-5.0) 08/30/17 06:01 Chloride 115.3 mmol/L (98-107) H 08/30/17 06:01 Carbon Dioxide 21 mmol/L (22-30) L 08/30/17 06:01 Anion Gap 17 mmol/L 08/30/17 06:01 BUN 60 mg/dL (9-20) H 08/30/17 06:01 Creatinine 2.9 mg/dL (0.8-1.5) H 08/30/17 06:01 Estimated GFR 25 ml/min 08/30/17 06:01 BUN/Creatinine Ratio 21 % 08/30/17 06:01 Glucose 166 mg/dL (75-100) H 08/30/17 06:01 Hemoglobin A1c 6.4 % (4-6) H 08/27/17 08:19 Calcium 8.4 mg/dL (8.4-10.2) 08/30/17 06:01 Phosphorus 4.80 mg/dL (2.5-4.5) H 08/26/17 12:18 Magnesium 2.80 mg/dL (1.7-2.3) H 08/26/17 12:18 Total Bilirubin 0.50 mg/dL (0.1-1.2) 08/28/17 04:42 Direct Bilirubin 0.3 mg/dL (0-0.2) H 08/26/17 12:18 Indirect Bilirubin 0.4 mg/dL 08/26/17 12:18 AST 10 units/L (5-40) 08/28/17 04:42 ALT 9 units/L (7-56) 08/28/17 04:42 Alkaline Phosphatase 96 units/L (35-129) 08/28/17 04:42 Total Creatine Kinase 243 units/L (55-170) H 08/26/17 12:18 CK-MB (CK-2) 2.3 ng/mL (0.0-4.0) 08/26/17 12:18 CK-MB (CK-2) Rel Index 0.9 (0-4) 08/26/17 12:18 NT-Pro-B Natriuret Pep 1539 pg/mL (0-900) H 08/26/17 12:18 Total Protein 7.0 g/dL (6.3-8.2) D 08/28/17 04:42 Albumin 2.8 g/dL (3.9-5) L 08/28/17 04:42 Albumin/Globulin Ratio 0.7 % 08/28/17 04:42 Urine Color Yellow (Yellow) 08/26/17 13:06 Urine Turbidity Clear (Clear) 08/26/17 13:06 Urine pH 7.0 (5.0-7.0) 08/26/17 13:06 Ur Specific [place] 1.013 (1.003-1.030) 08/26/17 13:06 Urine Protein 100 mg/dl mg/dL (Negative) 08/26/17 13:06 Urine Glucose (UA) Neg mg/dL (Negative) 08/26/17 13:06 Urine Ketones Neg mg/dL (Negative) 08/26/17 13:06 Urine Blood Lg (Negative) 08/26/17 13:06 Urine Nitrite Neg (Negative) 08/26/17 13:06 Urine Bilirubin Neg (Negative) 08/26/17 13:06 Urine Urobilinogen < 2.0 mg/dL (<2.0) 08/26/17 13:06 Ur Leukocyte Esterase Lg (Negative) 08/26/17 13:06 Urine WBC (Auto) > 182.0 /HPF (0.0-6.0) H 08/26/17 13:06 Urine RBC (Auto) 32.0 /HPF (0.0-6.0) 08/26/17 13:06 Urine WBC Clumps 3+ /HPF 08/26/17 13:06 Urine Mucus Few /HPF 08/26/17 13:06 Random Vancomycin 4.0 ug/mL (0-40.0) 08/28/17 04:42
[2017-08-30] MEDS: D5W 1,000 ML IV SCH ×2 (09:21→17:28)
[2017-08-30] MEDS: FLOMAX PO SCH (09:21)
[2017-08-30] MEDS: THERAGRAN-M Tab PO SCH (09:21)
[2017-08-30] MEDS: PEPCID PO SCH (09:21)
[2017-08-30] MEDS: KEPPRA PO SCH ×2 (09:21→22:05)
[2017-08-30] MEDS: LACTINEX PO SCH (09:21)
[2017-08-30] MEDS: SENOKOT PO SCH ×2 (09:21→22:06)
[2017-08-30] MEDS: SODIUM CHLORIDE FLUSH SYRINGE 10 ML IV SCH ×2 (09:21→22:06)
--- NOTE | 2017-08-30 10:36 | Progress Note ---
Assessment and Plan Impression: * Acute kidney injury due to multifactorial etiologies - prerenal azotemia due to dehydration vs obstructive uropathy * Bilateral hydronephrosis in setting of suprapubic catheter * Hypernatremia * Hyperkalemia * Type II DM * Hx of CVA * uti with sepsis Plan: * renal prognosis is guarded * follow up labs today and daily, bun/cr is better * IR consulted, PCNT now on hold, patient desires no aggressive care per IR * continue ivfs--V9B--Po noted * if no aggressive care desired he needs a hospice/palliative care consult * iv abx for uti * Kayexelate prn * daily lytes * strict i/os * Empiric abx per primary team * Avoid potential nephrotoxins * Dose medications for renal function Subjective Date of service: 08/30/17 Principal diagnosis: shelby, roosevelt hydro Interval history: resting well in bed today, events noted Objective - Exam Narrative Exam: - General Limitations: Altered Mental Status, Physical Limitation General appearance: other (quite volume depleted) - Head Head exam: Present: atraumatic - Eye Eye exam: Absent: scleral icterus - ENT ENT exam: Present: mucous membranes dry - Neck Neck exam: Present: normal inspection - Respiratory Respiratory exam: Present: normal lung sounds bilaterally. Absent: respiratory distress, accessory muscle use - Cardiovascular Cardiovascular Exam: Present: regular rate, normal rhythm. Absent: systolic murmur, diastolic murmur, rubs, gallop - GI/Abdominal GI/Abdominal exam: Present: soft, normal bowel sounds, other (the suprapubic site has white purulent material. This was sent for culture. The catheter is draining urine which looks turbid.). Absent: distended, tenderness, guarding, rebound, rigid - Extremities Exam Extremities exam: Present: other (contracture of the left upper extremity and generalized rigidity) - Neurological Exam Neurological exam: Present: other (no acute focal deficit) - Vital Signs Vital signs: Vital Signs - 12hr 08/30/17 08/30/17 08/30/17 02:15 06:07 08:09 Temperature 97.4 F L 98.1 F Pulse Rate 57 L 57 L 61 Respiratory 18 14 Rate Blood Pressure 144/70 144/70 117/56 O2 Sat by Pulse 89 98 Oximetry - Lab 08/30/17 06:01 06/24/18 06:01 Most recent lab results Calcium 8.4 mg/dL (8.4-10.2) 08/30/17 06:01 Phosphorus 4.80 mg/dL (2.5-4.5) H 08/26/17 12:18 Magnesium 2.80 mg/dL (1.7-2.3) H 08/26/17 12:18
[2017-08-30] MEDS: REMERON PO SCH (22:06)
[2017-08-31] MEDS: D5W 1,000 ML IV SCH ×2 (02:01→20:10)
[2017-08-31] MEDS: ZOSYN/NS 2.25 GM/50ML 2.25 GM/50 ML BAG IV SCH ×3 (06:04→22:29)
[2017-08-31] MEDS: LOPRESSOR PO SCH ×3 (06:05→22:32)
[2017-08-31 06:41] LABS: Basophils % (Auto) 0.5 % (0.0-1.8); Eosinophils # (Auto) 0.3 K/mm3 (0.0-0.4); Eosinophils % (Auto) 2.9 % (0.0-4.3); Hematocrit 32.6 % (35.5-45.6); Hemoglobin 10.8 gm/dl (11.8-15.2); Lymphocytes # (Auto) 1.2 K/mm3 (1.2-5.4); Mean Corpuscular HGB Conc 33 % (32-34); Mean Corpuscular Hemoglobin 31 pg (28-32); Mean Corpuscular Volume 94 fl (84-94); Monocytes # (Auto) 0.7 K/mm3 (0.0-0.8); Monocytes % (Auto) 7.6 % (0.0-7.3); Platelet Count 266 K/mm3 (140-440); Red Blood Count 3.47 M/mm3 (3.65-5.03); Red Cell Distribution Width 15.5 % (13.2-15.2)
[2017-08-31 06:54] LABS: Calcium 8.5 mg/dL (8.4-10.2)
--- NOTE | 2017-08-31 09:50 | Progress Note ---
Assessment and Plan Impression: * Acute kidney injury due to multifactorial etiologies - prerenal azotemia due to dehydration vs obstructive uropathy * Bilateral hydronephrosis in setting of suprapubic catheter * Hypernatremia * Hyperkalemia * Type II DM * Hx of CVA * uti with sepsis Plan: * renal prognosis is guarded * bun/cr is better * IR consulted, PCNT now on hold, patient desires no aggressive care per IR * continue ivfs--U1V--Pl noted * if no aggressive care desired he needs a hospice/palliative care consult * iv abx for uti * Kayexelate prn * daily lytes * strict i/os * Empiric abx per primary team * Avoid potential nephrotoxins * Dose medications for renal function Subjective Date of service: 08/31/17 Principal diagnosis: shelby, roosevelt hydro Interval history: resting well in bed today, events noted Objective - Exam Narrative Exam: - General Limitations: Altered Mental Status, Physical Limitation General appearance: other (quite volume depleted) - Head Head exam: Present: atraumatic - Eye Eye exam: Absent: scleral icterus - ENT ENT exam: Present: mucous membranes dry - Neck Neck exam: Present: normal inspection - Respiratory Respiratory exam: Present: normal lung sounds bilaterally. Absent: respiratory distress, accessory muscle use - Cardiovascular Cardiovascular Exam: Present: regular rate, normal rhythm. Absent: systolic murmur, diastolic murmur, rubs, gallop - GI/Abdominal GI/Abdominal exam: Present: soft, normal bowel sounds, other (the suprapubic site has white purulent material. This was sent for culture. The catheter is draining urine which looks turbid.). Absent: distended, tenderness, guarding, rebound, rigid - Extremities Exam Extremities exam: Present: other (contracture of the left upper extremity and generalized rigidity) - Neurological Exam Neurological exam: Present: other (no acute focal deficit) - Vital Signs Vital signs: Vital Signs - 12hr 08/30/17 08/30/17 08/31/17 22:00 22:07 02:00 Temperature 97.8 F Pulse Rate 64 64 68 Respiratory 18 Rate Blood Pressure 92/54 Blood Pressure 109/53 [Right] O2 Sat by Pulse 98 Oximetry 08/31/17 08/31/17 04:30 06:05 Temperature Pulse Rate 68 68 Respiratory Rate Blood Pressure 106/53 Blood Pressure [Right] O2 Sat by Pulse Oximetry - Lab 08/31/17 05:48 08/31/17 05:48 Most recent lab results Calcium 8.5 mg/dL (8.4-10.2) 08/31/17 05:48 Phosphorus 4.80 mg/dL (2.5-4.5) H 08/26/17 12:18 Magnesium 2.80 mg/dL (1.7-2.3) H 08/26/17 12:18
[2017-08-31] MEDS: LACTINEX PO SCH (10:51)
[2017-08-31] MEDS: KEPPRA PO SCH ×2 (10:52→22:30)
[2017-08-31] MEDS: FLOMAX PO SCH (10:52)
[2017-08-31] MEDS: SODIUM CHLORIDE FLUSH SYRINGE 10 ML IV SCH ×2 (10:52→22:34)
[2017-08-31] MEDS: SENOKOT PO SCH ×2 (10:52→22:31)
[2017-08-31] MEDS: THERAGRAN-M Tab PO SCH (10:52)
[2017-08-31] MEDS: PEPCID PO SCH (10:57)
--- NOTE | 2017-08-31 11:59 | Consultation ---
History of Present Illness - Reason for Consult Consult date: 08/31/17 UTI/sepsis Requesting physician: MEDARDO CHAMBERS - History of Present Illness 82 y/o male with history with history of CAD S/P CABG, Dementia, Contracture, PVD, GERD, CKD, DM, HTN, CHF, Seizure Disorder, Debility, [facility] resident ;admitted on 08/26/17 due to laboratory abnormalities. According to the transfer sheet his vital signs were stable and she was afebrile at [facility]. He apparently had laboratory and EKG worsening renal function. Of note, he was recently admitted 08/10-08/17/17 due to AMA/confused/ fever 101.2 and right knee swelling on the day before admission. Underwent CT of the leg which showed moderate joint effusion. Patient knee aspiration showed bloody fluid, white blood cells 70,000, red blood cell 740,000, segs 61% ; Synovial cultures initially reported Staph aureus, was then corrected to no growth. I evaluated the patient at that time and decision was to keep him off antibiotics - there was not evidence of septic arthritis as fluid was negative , no organism seen on Gram stain. Crystal were not evaluated In the ED, initial temperature 98.7, heart rate 80, respiration 20, blood pressure 1513/91. Initial white count 13.4. Hemoglobin 12. Platelets 1513. Creatinine 6.1. UA large LE, wbc 182. CT was evaluated which demonstrated bilateral hydronephrosis and hydroureter without obstructing calculi with hypertrophic bladder and suprapubic catheter. Microbiology: Urine cultures: 08/26 multiple sp 10-100K Wound cultures: 08/26 Proteus mirabilis MDR sens to ceftin, cefepime, zosyn Current Antimicrobials: Zosyn 08/26 Previous Antimicrobials: Past History Past Medical History: CAD, renal failure, stroke (left hemiparesis) Past Surgical History: CABG Social history: other (resides in SNF) Family history: other (not obtainable) Medications and Allergies Allergies Allergy/AdvReac Type Severity Reaction Status Date / Time No Known Allergies Allergy Verified 07/07/15 16:02 Home Medications Medication Instructions Recorded Confirmed Last Taken Type Acetaminophen [Acetaminophen TAB] 650 mg PO Q6HR PRN 11/10/14 08/26/17 Unknown History Clopidogrel [Plavix] 75 mg PO DAILY 11/10/14 08/26/17 09/02/15 09:00 History Ferrous Sulfate [Ferrous Sulfate 5 ml PO DAILY 11/10/14 08/26/17 09/02/15 09:00 History Oral Liq 220 Mg/5 Ml] Furosemide [Lasix TAB] 20 mg PO QDAY 11/10/14 08/26/17 09/02/15 09:00 History LORazepam [Ativan] 1 mg PO TID PRN 11/10/14 08/26/17 Unknown History Multivitamin Tab W-MINERAL 1 each PO DAILY 11/10/14 08/26/17 09/02/15 09:00 History [Multiple Vitamin/Mineral (Theragran M)] Tamsulosin [Flomax] 0.4 mg PO DAILY 11/10/14 08/26/17 09/02/15 09:00 History levETIRAcetam [Keppra TAB] 500 mg PO BID 11/10/14 08/26/17 09/02/15 17:00 History Lactobacillus Acidophilus/Pect 1 each PO DAILY 07/07/15 08/26/17 09/02/15 09:00 History [Acidophilus-Pectin Capsule] Nitrofurantoin Macrocrysta(Nf) 50 mg PO DAILY 08/31/15 08/26/17 Unknown History [Macrodantin CAP] Metoprolol [Lopressor TAB] 50 mg PO Q8H #30 tablet 08/17/17 08/26/17 Unknown Rx Lansoprazole [Prevacid] 30 mg PO DAILY 08/26/17 08/26/17 Unknown History Mirtazapine 7.5 mg PO HS 08/26/17 08/26/17 Unknown History Sennosides [Senna] 17.2 mg PO BID 08/26/17 08/26/17 Unknown History Active Meds: Active Medications Acetaminophen (Tylenol) 650 mg PO Q4H PRN PRN Reason: Pain MILD(1-3)/Fever >100.5/CUADRA Famotidine (Pepcid) 20 mg PO QAM YUNIEL Last Admin: 08/31/17 10:57 Dose: 20 mg Hydralazine HCl (Apresoline) 10 mg IV Q4HR PRN PRN Reason: BP >160/100 Piperacillin Sod/Tazobactam Sod (Zosyn/Ns 2.25 Gm/50ml) 2.25 gm in 50 mls @ 100 mls/hr IV Q8H [facility] Last Admin: 08/31/17 06:04 Dose: 100 mls/hr Dextrose (D5w) 1,000 mls @ 125 mls/hr IV DIRECT [facility] Last Admin: 08/31/17 02:01 Dose: 125 mls/hr Lactobacillus Acidophilus (Lactinex) 1 each PO DAILY [facility] Last Admin: 08/31/17 10:51 Dose: 1 each Levetiracetam (Keppra) 500 mg PO BID [facility] Last Admin: 08/31/17 10:52 Dose: 500 mg Lorazepam (Ativan) 1 mg PO TID PRN PRN Reason: Anxiety Metoprolol Tartrate (Lopressor) 50 mg PO Q8HR [facility] Last Admin: 08/31/17 06:05 Dose: Not Given Mirtazapine (Remeron) 7.5 mg PO HS [facility] Last Admin: 08/30/17 22:06 Dose: 7.5 mg Morphine Sulfate (Morphine) 2 mg IV Q4H PRN PRN Reason: Pain, Moderate (4-6) Multivitamins/Minerals (Theragran-M Tab) 1 each PO DAILY [facility] Last Admin: 08/31/17 10:52 Dose: 1 each Ondansetron HCl (Zofran) 4 mg IV Q8H PRN PRN Reason: Nausea And Vomiting Senna (Senokot) 17.2 mg PO BID [facility] Last Admin: 08/31/17 10:52 Dose: 17.2 mg Sodium Chloride (Sodium Chloride Flush Syringe 10 Ml) 10 ml IV BID [facility] Last Admin: 08/31/17 10:52 Dose: 10 ml Sodium Chloride (Sodium Chloride Flush Syringe 10 Ml) 10 ml IV PRN PRN PRN Reason: LINE FLUSH Last Admin: 08/28/17 21:13 Dose: 10 ml Tamsulosin HCl (Flomax) 0.4 mg PO DAILY [facility] Last Admin: 08/31/17 10:52 Dose: 0.4 mg Review of Systems ROS unobtainable: due to mental status All systems: negative (unable) Physical Examination - Physical Exam Narrative exam: General appearance: Alert in NAD, non conversant Eyes: anicteric sclerae, moist conjunctivae; no lid-lag; PERRLA HENT: Atraumatic; oropharynx limited Neck: Trachea midline Lungs: CTA CV: RRR, no murmurs Abdomen: Soft, non-tender; no masses or hepatosplenomegaly Extremities: contracted Skin: + STAGE 2 ULCERS NOTED TO BOTH LEFT AND RIGHT BUTTOCKS. SMALL AMOUNT OF SEROSANGUINEOUS DRAINAGE NOTED. NO ODOR. SMALL AMOUNT OF YELLOW SLOUGH NOTED TO WOUD BED Psych: non verbal. Neuro: alert non verbal Lines: No CVL / PICC - Constitutional Vitals: Vital Signs Temp Pulse Resp BP Pulse Ox 99.1 F 69 18 129/76 98 08/31/17 08:25 08/31/17 08:25 08/31/17 08:25 08/31/17 08:25 08/31/17 08:25 Temperature -Last 24 Hours Temperature 99.1 F Temperature 97.8 F Temperature 98.3 F Temperature 97.2 F Results - Labs CBC & Chem 7: 08/31/17 05:48 08/31/17 05:48 Labs: Abnormal lab results 08/31/17 08/31/17 Range/Units 05:48 05:48 RBC 3.47 L (3.65-5.03) M/mm3 Hgb 10.8 L (11.8-15.2) gm/dl Hct 32.6 L (35.5-45.6) % RDW 15.5 H (13.2-15.2) % Lymph % (Auto) 12.0 L (13.4-35.0) % [place] % (Auto) 7.6 H (0.0-7.3) % Seg Neutrophils % 77.0 H (40.0-70.0) % Chloride 110.1 H (98-107) mmol/L BUN 44 H (9-20) mg/dL Creatinine 2.8 H (0.8-1.5) mg/dL Glucose 150 H (75-100) mg/dL Assessment and Plan Assessment: 1) Leukocytosis - from UTI/ buttocks wounds - better 2) UTI: complicated with SP/ bilateral hydronephrosis -Urine cx 10-100K mixed 3) Bilateral buttocks ulcers stage II infected - Wound cultures 08/26 Proteus mirabilis MDR sens to ceftin, cefepime, zosyn 4) DARYL on CKD - CT was evaluated which demonstrated bilateral hydronephrosis and hydroureter without obstructing calculi with hypertrophic bladder and suprapubic catheter. 5) CAD S/P CABG / CHF 6) Dementia 7) Contractures 8) PVD 10) Recent left knee moderate joint effusion. Patient knee aspiration showed bloody fluid, white blood cells 70,000, red blood cell 740,000, segs 61%; Synovial cultures initially reported Staph aureus, was then corrected to no growth. I evaluated the patient at that time and decision was to keep him off antibiotics - there was not evidence of septic arthritis as fluid was negative , no organism seen on Gram stain. Crystal were not evaluated Plan: -continue zosyn for now -wound care on board -exchange SP cath -consider hospice Thank you for your consultation, will follow up with you. Laura Matta MD Infectious Diseases Specialist [facility] M [phone] O [phone]
--- NOTE | 2017-08-31 12:33 | Progress Note ---
Assessment and Plan Assessment and plan: 82-year-old man from [facility], history of stroke, is aphasic, contracted and bedbound. Other history of reflux uropathy status post suprapubic catheter, with recurrent UTIs. Past medical history: Reflux uropathy, status post suprapubic catheter, hemiplegia following CVA, history of MRSA sepsis, BPH, nephrolithiasis, peripheral. Serial disease, aphasia, and deficiency anemia, chronic kidney disease stage III, ventral hernia, diverticulosis of colon, advanced dementia, CAD status post CABG, seizure disorder, Sepsis due to UTI Continue antibiotics, urine cultures show mixed organism growth, per ID, to be observed off abx for now, abx have been stopped Obstructive uropathy per documents, family does not want invasive procedures in this patient. We'll confirm with his next of kin today Hemiplegia following CVA, continue supportive care Hypernatremia Was likely due to dehydration, improving, continue D5 water Acute on chronic kidney disease, vasomotor nephropathy Continue IV fluids, improving Plan to discuss hospice option with his son who is the next of kin History Interval history: remains bedbound aphasic, does not communicate no fever, no agitation, no seizures, no chills observed by Nursing staff Hospitalist Physical - Physical exam Narrative exam: General.: Appears well, no distress, nontoxic, cachectic HEENT: Moist mucous membranes, extraocular muscles intact, no lymphadenopathy Neck: supple Cardiac: S1-S2 heard Lungs: clear to auscultation bilaterally Abdomen: soft , nontender, nondistended, bowel sounds positive Extremities: Extremities are contracted Skin: no rash or lesions Neurologic: A phasic, opens eyes to voice, nonverbal, does not obey commands - Constitutional Vitals: Temp Pulse Resp BP Pulse Ox 99.1 F 69 18 129/76 98 08/31/17 08:25 08/31/17 08:25 08/31/17 08:25 08/31/17 08:25 08/31/17 08:25 General appearance: Present: no acute distress Results - Labs CBC & Chem 7: 09/01/17 05:29 09/01/17 05:29 Labs: Laboratory Last Values WBC 9.8 K/mm3 (4.5-11.0) 08/31/17 05:48 RBC 3.47 M/mm3 (3.65-5.03) L 08/31/17 05:48 Hgb 10.8 gm/dl (11.8-15.2) L 08/31/17 05:48 Hct 32.6 % (35.5-45.6) L 08/31/17 05:48 MCV 94 fl (84-94) 08/31/17 05:48 MCH 31 pg (28-32) 08/31/17 05:48 MCHC 33 % (32-34) 08/31/17 05:48 RDW 15.5 % (13.2-15.2) H 08/31/17 05:48 Plt Count 266 K/mm3 (140-440) 08/31/17 05:48 Lymph % (Auto) 12.0 % (13.4-35.0) L 08/31/17 05:48 [place] % (Auto) 7.6 % (0.0-7.3) H 08/31/17 05:48 Eos % (Auto) 2.9 % (0.0-4.3) 08/31/17 05:48 Baso % (Auto) 0.5 % (0.0-1.8) 08/31/17 05:48 Lymph # 1.2 K/mm3 (1.2-5.4) 08/31/17 05:48 [place] # 0.7 K/mm3 (0.0-0.8) 08/31/17 05:48 Eos # 0.3 K/mm3 (0.0-0.4) 08/31/17 05:48 Baso # 0.0 K/mm3 (0.0-0.1) 08/31/17 05:48 Seg Neutrophils % 77.0 % (40.0-70.0) H 08/31/17 05:48 Seg Neutrophils # 7.6 K/mm3 (1.8-7.7) 08/31/17 05:48 PT 15.7 Sec. (12.2-14.9) H 08/26/17 12:54 INR 1.18 (0.87-1.13) H 08/26/17 12:54 APTT 32.8 Sec. (24.2-36.6) 08/26/17 12:54 Sodium 144 mmol/L (137-145) 08/31/17 05:48 Potassium 4.5 mmol/L (3.6-5.0) 08/31/17 05:48 Chloride 110.1 mmol/L (98-107) H 08/31/17 05:48 Carbon Dioxide 23 mmol/L (22-30) 08/31/17 05:48 Anion Gap 15 mmol/L 08/31/17 05:48 BUN 44 mg/dL (9-20) H 08/31/17 05:48 Creatinine 2.8 mg/dL (0.8-1.5) H 08/31/17 05:48 Estimated GFR 26 ml/min 08/31/17 05:48 BUN/Creatinine Ratio 16 % 08/31/17 05:48 Glucose 150 mg/dL (75-100) H 08/31/17 05:48 Hemoglobin A1c 6.4 % (4-6) H 08/27/17 08:19 Calcium 8.5 mg/dL (8.4-10.2) 08/31/17 05:48 Phosphorus 4.80 mg/dL (2.5-4.5) H 08/26/17 12:18 Magnesium 2.80 mg/dL (1.7-2.3) H 08/26/17 12:18 Total Bilirubin 0.50 mg/dL (0.1-1.2) 08/28/17 04:42 Direct Bilirubin 0.3 mg/dL (0-0.2) H 08/26/17 12:18 Indirect Bilirubin 0.4 mg/dL 08/26/17 12:18 AST 10 units/L (5-40) 08/28/17 04:42 ALT 9 units/L (7-56) 08/28/17 04:42 Alkaline Phosphatase 96 units/L (35-129) 08/28/17 04:42 Total Creatine Kinase 243 units/L (55-170) H 08/26/17 12:18 CK-MB (CK-2) 2.3 ng/mL (0.0-4.0) 08/26/17 12:18 CK-MB (CK-2) Rel Index 0.9 (0-4) 08/26/17 12:18 NT-Pro-B Natriuret Pep 1539 pg/mL (0-900) H 08/26/17 12:18 Total Protein 7.0 g/dL (6.3-8.2) D 08/28/17 04:42 Albumin 2.8 g/dL (3.9-5) L 08/28/17 04:42 Albumin/Globulin Ratio 0.7 % 08/28/17 04:42 Urine Color Yellow (Yellow) 08/26/17 13:06 Urine Turbidity Clear (Clear) 08/26/17 13:06 Urine pH 7.0 (5.0-7.0) 08/26/17 13:06 Ur Specific [place] 1.013 (1.003-1.030) 08/26/17 13:06 Urine Protein 100 mg/dl mg/dL (Negative) 08/26/17 13:06 Urine Glucose (UA) Neg mg/dL (Negative) 08/26/17 13:06 Urine Ketones Neg mg/dL (Negative) 08/26/17 13:06 Urine Blood Lg (Negative) 08/26/17 13:06 Urine Nitrite Neg (Negative) 08/26/17 13:06 Urine Bilirubin Neg (Negative) 08/26/17 13:06 Urine Urobilinogen < 2.0 mg/dL (<2.0) 08/26/17 13:06 Ur Leukocyte Esterase Lg (Negative) 08/26/17 13:06 Urine WBC (Auto) > 182.0 /HPF (0.0-6.0) H 08/26/17 13:06 Urine RBC (Auto) 32.0 /HPF (0.0-6.0) 08/26/17 13:06 Urine WBC Clumps 3+ /HPF 08/26/17 13:06 Urine Mucus Few /HPF 08/26/17 13:06 Random Vancomycin 4.0 ug/mL (0-40.0) 08/28/17 04:42
[2017-08-31] MEDS: REMERON PO SCH (22:31)
[2017-09-01] MEDS: LOPRESSOR PO SCH ×3 (05:14→22:54)
[2017-09-01] MEDS: D5W 1,000 ML IV SCH ×2 (05:15→16:04)
[2017-09-01 06:17] LABS: Basophils % (Auto) 0.6 % (0.0-1.8); Eosinophils # (Auto) 0.3 K/mm3 (0.0-0.4); Eosinophils % (Auto) 4.4 % (0.0-4.3); Hematocrit 32.1 % (35.5-45.6); Hemoglobin 10.8 gm/dl (11.8-15.2); Lymphocytes % (Auto) 14.1 % (13.4-35.0); Mean Corpuscular HGB Conc 34 % (32-34); Mean Corpuscular Hemoglobin 31 pg (28-32); Mean Corpuscular Volume 92 fl (84-94); Monocytes # (Auto) 0.6 K/mm3 (0.0-0.8); Monocytes % (Auto) 8.5 % (0.0-7.3); Platelet Count 252 K/mm3 (140-440); Red Blood Count 3.47 M/mm3 (3.65-5.03); Red Cell Distribution Width 15.3 % (13.2-15.2)
[2017-09-01 06:43] LABS: Calcium 8.6 mg/dL (8.4-10.2)
--- NOTE | 2017-09-01 07:15 | Progress Note ---
Assessment and Plan Assessment and plan: 82-year-old man from [facility], history of stroke, is aphasic, contracted and bedbound. Other history of reflux uropathy status post suprapubic catheter, with recurrent UTIs. Past medical history: Reflux uropathy, status post suprapubic catheter, hemiplegia following CVA, history of MRSA sepsis, BPH, nephrolithiasis, peripheral arterial disease, aphasia, and deficiency anemia, chronic kidney disease stage III, ventral hernia, diverticulosis of colon, advanced dementia, CAD status post CABG, seizure disorder, Sepsis due to UTI and sacral decub infection continue zosyn by ID, will do ceftin upon dc Obstructive uropathy Per son, they want treatment at this time. He is unlikely to benefit from invasive urologic procedure, per son, continue abx, IVF and SPC cath exchange is ok Hemiplegia following CVA, continue supportive care Hypernatremia Was likely due to dehydration, improving, continue D5 water Acute on chronic kidney disease, vasomotor nephropathy Continue IV fluids, improving called his son at [phone], plan to dc tomorrow to [place] with Hospice care tentative dc tomorrow History Interval history: remains bedbound aphasic, does not communicate well no fever, no agitation, no seizures, no chills observed by Nursing staff Hospitalist Physical - Physical exam Narrative exam: General.: Appears well, no distress, nontoxic, cachectic HEENT: Moist mucous membranes, extraocular muscles intact, no lymphadenopathy Neck: supple Cardiac: S1-S2 heard Lungs: clear to auscultation bilaterally Abdomen: soft , nontender, nondistended, bowel sounds positive Extremities: Extremities are contracted Skin: STAGE 2 ULCERS NOTED TO BOTH LEFT AND RIGHT BUTTOCKS Neurologic: A phasic, opens eyes to voice, says a few words, unable to maintain a conversation, obeys simple commands - Constitutional Vitals: Temp Pulse Resp BP Pulse Ox 98.5 F 57 L 18 121/53 100 09/01/17 02:22 09/01/17 05:14 09/01/17 02:22 09/01/17 05:14 09/01/17 02:22 General appearance: Present: no acute distress Results - Labs CBC & Chem 7: 09/01/17 05:29 09/01/17 05:29 Labs: Laboratory Last Values WBC 7.2 K/mm3 (4.5-11.0) 09/01/17 05:29 RBC 3.47 M/mm3 (3.65-5.03) L 09/01/17 05:29 Hgb 10.8 gm/dl (11.8-15.2) L 09/01/17 05:29 Hct 32.1 % (35.5-45.6) L 09/01/17 05:29 MCV 92 fl (84-94) 09/01/17 05:29 MCH 31 pg (28-32) 09/01/17 05:29 MCHC 34 % (32-34) 09/01/17 05:29 RDW 15.3 % (13.2-15.2) H 09/01/17 05:29 Plt Count 252 K/mm3 (140-440) 09/01/17 05:29 Lymph % (Auto) 14.1 % (13.4-35.0) 09/01/17 05:29 [place] % (Auto) 8.5 % (0.0-7.3) H 09/01/17 05:29 Eos % (Auto) 4.4 % (0.0-4.3) H 09/01/17 05:29 Baso % (Auto) 0.6 % (0.0-1.8) 09/01/17 05:29 Lymph # 1.0 K/mm3 (1.2-5.4) L 09/01/17 05:29 [place] # 0.6 K/mm3 (0.0-0.8) 09/01/17 05:29 Eos # 0.3 K/mm3 (0.0-0.4) 09/01/17 05:29 Baso # 0.0 K/mm3 (0.0-0.1) 09/01/17 05:29 Seg Neutrophils % 72.4 % (40.0-70.0) H 09/01/17 05:29 Seg Neutrophils # 5.2 K/mm3 (1.8-7.7) 09/01/17 05:29 PT 15.7 Sec. (12.2-14.9) H 08/26/17 12:54 INR 1.18 (0.87-1.13) H 08/26/17 12:54 APTT 32.8 Sec. (24.2-36.6) 08/26/17 12:54 Sodium 142 mmol/L (137-145) 09/01/17 05:29 Potassium 4.4 mmol/L (3.6-5.0) 09/01/17 05:29 Chloride 107.1 mmol/L (98-107) H 09/01/17 05:29 Carbon Dioxide 22 mmol/L (22-30) 09/01/17 05:29 Anion Gap 17 mmol/L 09/01/17 05:29 BUN 32 mg/dL (9-20) H 09/01/17 05:29 Creatinine 2.3 mg/dL (0.8-1.5) H 09/01/17 05:29 Estimated GFR 33 ml/min 09/01/17 05:29 BUN/Creatinine Ratio 14 % 09/01/17 05:29 Glucose 144 mg/dL (75-100) H 09/01/17 05:29 Hemoglobin A1c 6.4 % (4-6) H 08/27/17 08:19 Calcium 8.6 mg/dL (8.4-10.2) 09/01/17 05:29 Phosphorus 4.80 mg/dL (2.5-4.5) H 08/26/17 12:18 Magnesium 2.80 mg/dL (1.7-2.3) H 08/26/17 12:18 Total Bilirubin 0.50 mg/dL (0.1-1.2) 08/28/17 04:42 Direct Bilirubin 0.3 mg/dL (0-0.2) H 08/26/17 12:18 Indirect Bilirubin 0.4 mg/dL 08/26/17 12:18 AST 10 units/L (5-40) 08/28/17 04:42 ALT 9 units/L (7-56) 08/28/17 04:42 Alkaline Phosphatase 96 units/L (35-129) 08/28/17 04:42 Total Creatine Kinase 243 units/L (55-170) H 08/26/17 12:18 CK-MB (CK-2) 2.3 ng/mL (0.0-4.0) 08/26/17 12:18 CK-MB (CK-2) Rel Index 0.9 (0-4) 08/26/17 12:18 NT-Pro-B Natriuret Pep 1539 pg/mL (0-900) H 08/26/17 12:18 Total Protein 7.0 g/dL (6.3-8.2) D 08/28/17 04:42 Albumin 2.8 g/dL (3.9-5) L 08/28/17 04:42 Albumin/Globulin Ratio 0.7 % 08/28/17 04:42 Urine Color Yellow (Yellow) 08/26/17 13:06 Urine Turbidity Clear (Clear) 08/26/17 13:06 Urine pH 7.0 (5.0-7.0) 08/26/17 13:06 Ur Specific [place] 1.013 (1.003-1.030) 08/26/17 13:06 Urine Protein 100 mg/dl mg/dL (Negative) 08/26/17 13:06 Urine Glucose (UA) Neg mg/dL (Negative) 08/26/17 13:06 Urine Ketones Neg mg/dL (Negative) 08/26/17 13:06 Urine Blood Lg (Negative) 08/26/17 13:06 Urine Nitrite Neg (Negative) 08/26/17 13:06 Urine Bilirubin Neg (Negative) 08/26/17 13:06 Urine Urobilinogen < 2.0 mg/dL (<2.0) 08/26/17 13:06 Ur Leukocyte Esterase Lg (Negative) 08/26/17 13:06 Urine WBC (Auto) > 182.0 /HPF (0.0-6.0) H 08/26/17 13:06 Urine RBC (Auto) 32.0 /HPF (0.0-6.0) 08/26/17 13:06 Urine WBC Clumps 3+ /HPF 08/26/17 13:06 Urine Mucus Few /HPF 08/26/17 13:06 Random Vancomycin 4.0 ug/mL (0-40.0) 08/28/17 04:42
--- NOTE | 2017-09-01 08:28 | XRay Report ---
PELVIS RADIOGRAPH INDICATION: Hydronephrosis. Evaluate for reflux. COMPARISON: 08/26/2017 CT. FINDINGS: Single, frontal pelvic alarm mechanic radiograph demonstrates a percutaneous cystostomy tube tip projecting over the mid pelvis. Non-obstructive bowel gas pattern. Left lower quadrant couple of radiodense probable diverticuli. Numerous pelvic vascular calcifications. Demineralized bones with few degenerative changes. CONCLUSION: Various findings, as above. Thank you for the opportunity to participate in this patient's care.
[2017-09-01] MEDS: ZOSYN/NS 2.25 GM/50ML 2.25 GM/50 ML BAG IV SCH ×3 (08:32→22:53)
--- NOTE | 2017-09-01 09:32 | Progress Note ---
Assessment and Plan Impression: * Acute kidney injury due to multifactorial etiologies - prerenal azotemia due to dehydration vs obstructive uropathy * Bilateral hydronephrosis in setting of suprapubic catheter * Hypernatremia * Hyperkalemia * Type II DM * Hx of CVA * uti with sepsis Plan: * renal prognosis is guarded * bun/cr is better * IR consulted, PCNT now on hold, patient desires no aggressive care per IR * continue ivfs--W9M--Lp noted * if no aggressive care desired he needs a hospice/palliative care consult * iv abx for uti * Kayexelate prn * daily lytes * strict i/os * Empiric abx per primary team * Avoid potential nephrotoxins * Dose medications for renal function * stable from renal standpoint Subjective Date of service: 09/01/17 Principal diagnosis: shelby, roosevelt hydro Interval history: resting well in bed today, events noted Objective - Exam Narrative Exam: - General Limitations: Altered Mental Status, Physical Limitation General appearance: other (quite volume depleted) - Head Head exam: Present: atraumatic - Eye Eye exam: Absent: scleral icterus - ENT ENT exam: Present: mucous membranes dry - Neck Neck exam: Present: normal inspection - Respiratory Respiratory exam: Present: normal lung sounds bilaterally. Absent: respiratory distress, accessory muscle use - Cardiovascular Cardiovascular Exam: Present: regular rate, normal rhythm. Absent: systolic murmur, diastolic murmur, rubs, gallop - GI/Abdominal GI/Abdominal exam: Present: soft, normal bowel sounds, other (the suprapubic site has white purulent material. This was sent for culture. The catheter is draining urine which looks turbid.). Absent: distended, tenderness, guarding, rebound, rigid - Extremities Exam Extremities exam: Present: other (contracture of the left upper extremity and generalized rigidity) - Neurological Exam Neurological exam: Present: other (no acute focal deficit) - Vital Signs Vital signs: Vital Signs - 12hr 08/31/17 08/31/17 09/01/17 22:00 22:32 02:22 Temperature 98.5 F Pulse Rate 62 57 L 57 L Respiratory 18 Rate Blood Pressure 125/55 121/53 O2 Sat by Pulse 99 100 Oximetry 09/01/17 09/01/17 05:14 08:08 Temperature 99.0 F Pulse Rate 57 L 57 L Respiratory 18 Rate Blood Pressure 121/53 134/64 O2 Sat by Pulse 100 Oximetry - Lab 09/01/17 05:29 09/01/17 05:29 Most recent lab results Calcium 8.6 mg/dL (8.4-10.2) 09/01/17 05:29 Phosphorus 4.80 mg/dL (2.5-4.5) H 08/26/17 12:18 Magnesium 2.80 mg/dL (1.7-2.3) H 08/26/17 12:18
[2017-09-01] MEDS: PEPCID PO SCH (10:52)
[2017-09-01] MEDS: FLOMAX PO SCH (10:52)
[2017-09-01] MEDS: KEPPRA PO SCH ×2 (10:52→22:55)
[2017-09-01] MEDS: SENOKOT PO SCH ×2 (10:52→22:55)
[2017-09-01] MEDS: THERAGRAN-M Tab PO SCH (10:52)
[2017-09-01] MEDS: SODIUM CHLORIDE FLUSH SYRINGE 10 ML IV SCH ×2 (10:52→22:56)
[2017-09-01] MEDS: LACTINEX PO SCH (10:57)
--- NOTE | 2017-09-01 10:58 | Fluoroscopy Report ---
FLUOROSCOPY CYSTOGRAM STATIC History: Hydronephrosis, evaluate for reflux. Findings: 9 fluoroscopic images were obtained in this exam. 400 cc of water-soluble contrast was infused into the bladder through a suprapubic catheter. There is mild trabeculation of the bladder wall but no evidence for filling defect or vesicoureteral reflux. Impression: No vesicoureteral reflux is identified.
--- NOTE | 2017-09-01 15:04 | Progress Note ---
Assessment and Plan Assessment: 1) Leukocytosis - from UTI/ buttocks wounds - resolved 2) UTI: complicated with SP/ bilateral hydronephrosis -Urine cx 10-100K mixed -S/p exchange SP cath -S/p cystogram - no reflux identified 3) Bilateral buttocks ulcers stage II infected - Wound cultures 08/26 Proteus mirabilis MDR sens to ceftin, cefepime, zosyn 4) DARYL on CKD - CT was evaluated which demonstrated bilateral hydronephrosis and hydroureter without obstructing calculi with hypertrophic bladder and suprapubic catheter. 5) CAD S/P CABG / CHF 6) Dementia 7) Contractures 8) PVD 10) Recent left knee moderate joint effusion. Patient knee aspiration showed bloody fluid, white blood cells 70,000, red blood cell 740,000, segs 61%; Synovial cultures initially reported Staph aureus, was then corrected to no growth. I evaluated the patient at that time and decision was to keep him off antibiotics - there was not evidence of septic arthritis as fluid was negative , no organism seen on Gram stain. Crystal were not evaluated Plan: -continue zosyn for now -wound care on board -upon discharge will do ceftin 500 mg po q24h total 10 days to cover UTI and sacral wound infection -consider hospice - overall prognosis very poor I am signing off Thank you for your consultation, will follow up with you. Laura Matta MD Infectious Diseases Specialist [facility] [phone] Subjective Date of service: 09/01/17 Principal diagnosis: daryl, roosevelt hydro Interval history: Remains somnolent underwent cystogram. No fever. Microbiology: Urine cultures: 08/26 multiple sp 10-100K Wound cultures: 08/26 Proteus mirabilis MDR sens to ceftin, cefepime, zosyn Current Antimicrobials: Zosyn 08/26 Objective - Exam Narrative Exam: General appearance: Alert in NAD, non conversant Eyes: anicteric sclerae, moist conjunctivae; no lid-lag; PERRLA HENT: Atraumatic; oropharynx limited Neck: Trachea midline Lungs: CTA CV: RRR, no murmurs Abdomen: Soft, non-tender; no masses or hepatosplenomegaly Extremities: contracted Skin: + STAGE 2 ULCERS NOTED TO BOTH LEFT AND RIGHT BUTTOCKS. SMALL AMOUNT OF SEROSANGUINEOUS DRAINAGE NOTED. NO ODOR. SMALL AMOUNT OF YELLOW SLOUGH NOTED TO WOUD BED Psych: non verbal. Neuro: alert non verbal Lines: No CVL / PICC - Constitutional Vitals: Vital Signs Temp Pulse Resp BP Pulse Ox 98.6 F 63 18 126/69 100 09/01/17 13:42 09/01/17 13:42 09/01/17 13:42 09/01/17 13:42 09/01/17 13:42 Temperature -Last 24 Hours Temperature 98.6 F Temperature 99.0 F Temperature 98.5 F Temperature 98.2 F - Labs CBC & Chem 7: 09/01/17 05:29 09/01/17 05:29 Labs: Abnormal lab results 09/01/17 09/01/17 Range/Units 05:29 05:29 RBC 3.47 L (3.65-5.03) M/mm3 Hgb 10.8 L (11.8-15.2) gm/dl Hct 32.1 L (35.5-45.6) % RDW 15.3 H (13.2-15.2) % [place] % (Auto) 8.5 H (0.0-7.3) % Eos % (Auto) 4.4 H (0.0-4.3) % Lymph # 1.0 L (1.2-5.4) K/mm3 Seg Neutrophils % 72.4 H (40.0-70.0) % Chloride 107.1 H (98-107) mmol/L BUN 32 H (9-20) mg/dL Creatinine 2.3 H (0.8-1.5) mg/dL Glucose 144 H (75-100) mg/dL
--- NOTE | 2017-09-01 17:19 | Progress Note ---
Subjective Date of service: 09/01/17 Principal diagnosis: shelby, roosevelt hydro Interval history: 82 year old male sent from the [facility] for evaluation of laboratory abnormalities. According to the transfer sheet his vital signs were stable and she was afebrile at [facility]. He apparently had laboratory and EKG worsening renal function. The patient was recently admitted to this facility. This is a gentleman with almost innumerable comorbidities. He is diabetic. 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 He has had previous strokes associated with left hemiparesthesias and contracture. He has a suprapubic catheter. He is had numerous UTIs. His last BUN and creatinine on August 16 were 47 and 21 respectively. Apparently he is a full CODE STATUS. He is poorly verbal. However, he is able to communicate to me that he really does not want aggressive care (he did not really seem to be very interested and even having a peripheral IV started). SPT in tact - 14 F changed to 16 F (08-28-17) - old tube have mucus debris CTAP - bilat hydro, small kidney stones BPH, gall stones ---hydro chronic per Dr. daigle--pt seen in past 08-31-17 CYSTOGRAM - NO REFLUX A/P bilat hydro, small kidney stones CVA continue SPT---change q 4-6 weeks NO INTERVENTION NEEDED Objective - Constitutional Vitals: Vital Signs - 12hr 09/01/17 09/01/17 09/01/17 08:08 10:00 13:42 Temperature 99.0 F 98.6 F Pulse Rate 57 L 63 Respiratory 18 18 Rate Blood Pressure 134/64 126/69 O2 Sat by Pulse 100 98 100 Oximetry 09/01/17 15:58 Temperature Pulse Rate 63 Respiratory Rate Blood Pressure 126/69 O2 Sat by Pulse Oximetry - Labs CBC & Chem 7: 09/01/17 05:29 09/01/17 05:29 Labs: Abnormal lab results 09/01/17 09/01/17 Range/Units 05:29 05:29 RBC 3.47 L (3.65-5.03) M/mm3 Hgb 10.8 L (11.8-15.2) gm/dl Hct 32.1 L (35.5-45.6) % RDW 15.3 H (13.2-15.2) % [place] % (Auto) 8.5 H (0.0-7.3) % Eos % (Auto) 4.4 H (0.0-4.3) % Lymph # 1.0 L (1.2-5.4) K/mm3 Seg Neutrophils % 72.4 H (40.0-70.0) % Chloride 107.1 H (98-107) mmol/L BUN 32 H (9-20) mg/dL Creatinine 2.3 H (0.8-1.5) mg/dL Glucose 144 H (75-100) mg/dL
[2017-09-01] MEDS: REMERON PO SCH (22:55)
[2017-09-02] MEDS: D5W 1,000 ML IV SCH (04:47)
[2017-09-02 06:20] LABS: Basophils % (Auto) 0.7 % (0.0-1.8); Eosinophils # (Auto) 0.3 K/mm3 (0.0-0.4); Eosinophils % (Auto) 3.8 % (0.0-4.3); Hematocrit 31.6 % (35.5-45.6); Hemoglobin 10.5 gm/dl (11.8-15.2); Lymphocytes # (Auto) 1.1 K/mm3 (1.2-5.4); Lymphocytes % (Auto) 14.3 % (13.4-35.0); Mean Corpuscular HGB Conc 33 % (32-34); Mean Corpuscular Hemoglobin 30 pg (28-32); Mean Corpuscular Volume 91 fl (84-94); Monocytes # (Auto) 0.8 K/mm3 (0.0-0.8); Monocytes % (Auto) 11.4 % (0.0-7.3); Platelet Count 243 K/mm3 (140-440); Red Blood Count 3.46 M/mm3 (3.65-5.03); Red Cell Distribution Width 15.2 % (13.2-15.2)
[2017-09-02 06:44] LABS: Calcium 8.5 mg/dL (8.4-10.2)
[2017-09-02] MEDS: ZOSYN/NS 2.25 GM/50ML 2.25 GM/50 ML BAG IV SCH ×2 (07:55→14:45)
[2017-09-02] MEDS: LOPRESSOR PO SCH ×2 (09:44→14:48)
[2017-09-02] MEDS: THERAGRAN-M Tab PO SCH (09:45)
[2017-09-02] MEDS: KEPPRA PO SCH (09:45)
[2017-09-02] MEDS: SODIUM CHLORIDE FLUSH SYRINGE 10 ML IV SCH (09:45)
[2017-09-02] MEDS: SENOKOT PO SCH (09:46)
[2017-09-02] MEDS: PEPCID PO SCH (09:46)
[2017-09-02] MEDS: LACTINEX PO SCH (09:46)
[2017-09-02] MEDS: FLOMAX PO SCH (09:46)
--- NOTE | 2017-09-02 10:23 | Progress Note ---
Assessment and Plan Impression: * Acute kidney injury due to multifactorial etiologies - prerenal azotemia due to dehydration vs obstructive uropathy * Bilateral hydronephrosis in setting of suprapubic catheter * Hypernatremia * Hyperkalemia * Type II DM * Hx of CVA * uti with sepsis Plan: * renal prognosis is guarded * bun/cr is better * IR consulted, PCNT now on hold, patient desires no aggressive care per IR * continue ivfs--K5Y--Mz noted * if no aggressive care desired he needs a hospice/palliative care consult * iv abx for uti * Kayexelate prn * daily lytes * strict i/os * Empiric abx per primary team * Avoid potential nephrotoxins * Dose medications for renal function * stable from renal standpoint Subjective Date of service: 09/02/17 Principal diagnosis: shelby, roosevelt hydro Interval history: resting well in bed today, events noted Objective - Exam Narrative Exam: - General Limitations: Altered Mental Status, Physical Limitation General appearance: other (quite volume depleted) - Head Head exam: Present: atraumatic - Eye Eye exam: Absent: scleral icterus - ENT ENT exam: Present: mucous membranes dry - Neck Neck exam: Present: normal inspection - Respiratory Respiratory exam: Present: normal lung sounds bilaterally. Absent: respiratory distress, accessory muscle use - Cardiovascular Cardiovascular Exam: Present: regular rate, normal rhythm. Absent: systolic murmur, diastolic murmur, rubs, gallop - GI/Abdominal GI/Abdominal exam: Present: soft, normal bowel sounds, other (the suprapubic site has white purulent material. This was sent for culture. The catheter is draining urine which looks turbid.). Absent: distended, tenderness, guarding, rebound, rigid - Extremities Exam Extremities exam: Present: other (contracture of the left upper extremity and generalized rigidity) - Neurological Exam Neurological exam: Present: other (no acute focal deficit) - Vital Signs Vital signs: Vital Signs - 12hr 09/01/17 09/02/17 09/02/17 22:54 03:53 03:54 Temperature 98.3 F Pulse Rate 54 L 56 L 55 L Respiratory 20 Rate Blood Pressure 133/61 128/69 O2 Sat by Pulse 100 100 Oximetry 09/02/17 07:44 Temperature 97.8 F Pulse Rate 54 L Respiratory 14 Rate Blood Pressure 109/58 O2 Sat by Pulse 99 Oximetry - Lab 09/02/17 06:15 09/02/17 06:15 Most recent lab results Calcium 8.5 mg/dL (8.4-10.2) 09/02/17 06:15 Phosphorus 4.80 mg/dL (2.5-4.5) H 08/26/17 12:18 Magnesium 2.80 mg/dL (1.7-2.3) H 08/26/17 12:18
--- NOTE | 2017-09-02 12:11 | Discharge Summary ---
Providers - Providers Date of Admission: 08/26/17 14:47 Attending physician: MEDARDO CHAMBERS MD 08/26/17 15:24 PICC Line Insertion [Consult to PICC Line RN] [CONS] Urgent Reason For Exam: access Type Line:: Midline 08/26/17 15:48 Consult to Physician [CONS] Urgent Comment: Consulting Provider: HERMINIO SALAZAR Physician Instructions: Reason For Exam: acute on chronic renal failure hypernatremia 08/26/17 19:59 Consult to Wound/ET Nurse [CONS] Routine Reason For Exam: wound eval 08/27/17 01:56 Consult to Physician [CONS] Routine Comment: spoke to megan/ chriss Consulting Provider: CUATE BUCHANAN Physician Instructions: Reason For Exam: Fredy Hydronephrosis 08/27/17 01:57 Consult to Physician [CONS] Routine Comment: called office spoke to jessica/chriss Consulting Provider: JP LOMBARDO Physician Instructions: Reason For Exam: Fredy Hydronephrosis 08/30/17 07:22 Consult to Physician [CONS] Routine Comment: spoke to dr. nieves Consulting Provider: XENIA COLEMAN Physician Instructions: Reason For Exam: UTI sepsis Primary care physician: RESPIRATORY SERVICES MANAGER Hospitalization Condition: Stable Disposition: DC-[id number] HOSPICE ([facility]) Exam - Constitutional Vitals: Temp Pulse Resp BP Pulse Ox 97.8 F 67 14 109/58 98 09/02/17 07:44 09/02/17 10:00 09/02/17 07:44 09/02/17 07:44 09/02/17 10:00 Plan Follow up with: MARIBELL COURTNEY MD [Primary Care Provider] - 3-5 Days Prescriptions: Cephalexin [Keflex] 500 mg PO Q12HR #14 cap
[2017-09-02 14:48] VITALS: BP 141/65
== END 2017-09-02 15:45 | DRG 871 ==
LOC: ED 11:29 → 2B-ACE 14:47
PROVIDERS: ADMIT Internal Medicine; ATTEND Internal Medicine
DX: A41.9 Sepsis, unspecified organism (principal); N17.0 Acute kidney failure with tubular necrosis; G93.41 Metabolic encephalopathy; N39.0 Urinary tract infection, site not specified; E87.0 Hyperosmolality and hypernatremia; N13.2 Hydronephrosis with renal and ureteral calculous obstruction; I13.0 Hypertensive heart and chronic kidney disease with heart failure and stage 1 through stage 4 chronic kidney disease, or unspecified chronic kidney disease; I69.352 Hemiplegia and hemiparesis following cerebral infarction affecting left dominant side; E86.9 Volume depletion, unspecified; E87.5 Hyperkalemia; R79.89 Other specified abnormal findings of blood chemistry; E86.0 Dehydration; N40.0 Benign prostatic hyperplasia without lower urinary tract symptoms; L89.322 Pressure ulcer of left buttock, stage 2; L89.312 Pressure ulcer of right buttock, stage 2; E11.22 Type 2 diabetes mellitus with diabetic chronic kidney disease; I25.10 Atherosclerotic heart disease of native coronary artery without angina pectoris; I50.9 Heart failure, unspecified; F03.90 Unspecified dementia, unspecified severity, without behavioral disturbance, psychotic disturbance, mood disturbance, and anxiety; E11.51 Type 2 diabetes mellitus with diabetic peripheral angiopathy without gangrene; N18.3 Chronic kidney disease, stage 3 (moderate); K21.9 Gastro-esophageal reflux disease without esophagitis; M81.0 Age-related osteoporosis without current pathological fracture; G40.909 Epilepsy, unspecified, not intractable, without status epilepticus; Z79.899 Other long term (current) drug therapy; Z95.1 Presence of aortocoronary bypass graft; I25.2 Old myocardial infarction
CPT/HCPCS: 36415; 51600; 70450; 71045; 72170; 74176; 74430; 80048; 80053; 80074; 80202; 81001; 82550; 82553; 83036; 83735; 83880; 84100; 85025; 85610; 85730; 87076; 87086; 87116; 87186; 93005; 93010; 96360; J2543; J3370; J7030; J7040; J7070; Q9958